=== PATIENT | male | born 1970 | race African-American/Black ===

== ENCOUNTER → 2018-12-04 11:15 | Outpatient (CLI) | payer MEDICARE | END | disposition home or self-care (01) | LOC: D.RAD 11:15 | PROVIDERS: ATTEND Family Medicine | DX: M25.561 Pain in right knee (principal) ==

== ENCOUNTER 2019-10-16 19:05 | Inpatient (IN) | payer MEDICARE ==
[~2019-10-16] VITALS: Ht 172.7 cm; Wt 94.8 kg
[2019-10-17 00:14] VITALS: BP 151/97; BMI 31.9
--- NOTE | 2019-10-17 01:47 | NUR ---
PATIENT AWAKE. BRIEF DRY. PHONE [employer] MECHANICAL DESIGNER ON. BED LOW. CALL LIGHT WITHIN REACH. WILL CONTINUE TO MONITOR.
[2019-10-17] MEDS ORDERED: CARDURA4 MG PO (01:49)
[2019-10-17] MEDS ORDERED: PACERONE200 MG PO (01:49)
[2019-10-17] MEDS ORDERED: CARDURA2 MG (01:51)
[2019-10-17] MEDS ORDERED: FOLIC ACID1 MG PO (01:51)
[2019-10-17] MEDS ORDERED: GABAPENTIN100 MG PO (01:52)
[2019-10-17] MEDS ORDERED: FUROSEMIDE20 MG PO (01:52)
[2019-10-17] MEDS ORDERED: HYDRALAZINE HC100 MG PO (01:53)
[2019-10-17] MEDS ORDERED: HYDROCODON-ACE1 EAC7 PO (01:53)
[2019-10-17] MEDS ORDERED: MAG-OX 400 MG400 MG PO (01:54)
[2019-10-17] MEDS ORDERED: ISOSORBIDE DINI30 MG PO (01:54)
[2019-10-17] MEDS ORDERED: PROCARDIA XL60 MG PO (01:55)
[2019-10-17] MEDS ORDERED: TOPROL XL100 MG PO (01:55)
[2019-10-17] MEDS ORDERED: VITAMIN B-1100 M1 PO (01:55)
[2019-10-17 05:41] LABS: BASOPHILS 0.3 % (0-2); EOSINOPHILS 3.1 % (0-7); HEMATOCRIT 40.7 % (42.0-54.0); HEMOGLOBIN 13.3 g/dL (13.5-17.5); IMMATURE GRANULOCYTES 0.4 % (0-5); LYMPHOCYTES 12.4 % (15-50); MCH 30.6 pg (26.0-34.0); MCHC 32.7 g/dL (31.0-37.0); MCV 93.8 fL (80.0-100.0); MEAN PLATELET VOLUME 10.4 fL (7.4-10.4); MONOCYTES 12.6 % (2-11); NEUTROPHILS 71.2 % (40-80); PLATELET COUNT 234 10x3/uL (130-400); RBC 4.34 10x6/uL (4.20-6.10); RDW 13.7 % (11.5-14.5); WBC 7.5 10x3/uL (4.8-10.8)
[2019-10-17 05:54] LABS: ANION GAP 12.3 mmol/L (8-16); CALCIUM 9.2 mg/dL (8.5-10.1); CARBON DIOXIDE 27.4 mmol/L (21.0-32.0); CREATININE - SERUM 2.1 mg/dL (0.6-1.3); POTASSIUM - SERUM 3.7 mmol/L (3.5-5.1)
--- NOTE | 2019-10-17 07:45 | NUR ---
RESTING IN BED WTIH EYES CLOSED, NO S/S OF DISTRESS NOTED, RESP EVEN AND UNLABORED, C/L AND FLUIDS IN REACH.
[2019-10-17 08:11] VITALS: BP 187/108
--- NOTE | 2019-10-17 09:00 | NUR ---
ASSESSMENT COMPLETE, DENIES ANY NEEDS AT THIS TIME, C/L AND FLUIDS IN REACH.
--- NOTE | 2019-10-17 12:00 | NUR ---
RESTING IN BED WITH EYES CLOSED, NO S/S OF DISTRESS NOTED, RESP EVEN AND UNLABORED, C/L AND FLUIDS IN REACH, REFUSED LUNCH WAS NOT HUNGRY.
[2019-10-17 13:14] VITALS: Ht 172.7 cm; Wt 94.8 kg
--- NOTE | 2019-10-17 16:00 | NUR ---
PATIENT RESTING IN BED WITH EYES CLOSED, NO S/S OF DISTRESS NOTED, RESP EVEN AND UNLABORED, C/L AND FLUIDS IN REACH.
[2019-10-17 19:00] VITALS: BP 128/81
--- NOTE | 2019-10-17 19:10 | NUR ---
BEDSIDE REPORT COMPLETE. PT SITTING UP IN BED VISITING WITH FAMILY. ALERT AND ORIENTED X4. DENIES ANY NEEDS OR PAIN. DINNER SITTING ON BEDSIDE TABLE. PT MOTHER STATES HE WILL EAT IT LATER AND TO LEAVE IN ROOM. VS STABLE. LEFT SIDE FLACCID AND PT NEGLECTS. CALL LIGHT WITHIN REACH. BED ALARM ON. CPOC
[2019-10-17 21:00] VITALS: BP 145/83
--- NOTE | 2019-10-18 01:27 | NUR ---
PT LYING IN BED EYES CLOSED RESTING COMFORTABLY. RR EVEN AND UNLABORED. HOB ELEVATED. CALL LIGHT WITHIN REACH. BED ALARM ON. CPOC
--- NOTE | 2019-10-18 05:37 | NUR ---
PT LYING IN BED EYES CLOSED RESTING COMFORTABLY. RR EVEN AND UNLABORED. CALL LIGHT WITHIN REACH. BED ALARM ON. CPOC
--- NOTE | 2019-10-18 11:00 | NUR ---
I have reviewed this patient and I concur with the Shift Assessment completed by the Licensed Practical Nurse today this shift.
[2019-10-18 11:26] VITALS: BP 184/115
--- NOTE | 2019-10-18 19:31 | NUR ---
PATIENT RECEIVED SITTING UP IN BED. ASSESSMENT & VITAL SIGNS DONE. MOTHER IN ROOM. PATIENT OPENED EYES WHEN THIS NURSE INTRODUCED SELF TO PATIENT & MOTHER. BED LOW. CALL LIGHT WITHIN REACH. WILL CONTINUE TO MONITOR.
[2019-10-18 20:39] VITALS: BP 121/84
--- NOTE | 2019-10-19 01:23 | NUR ---
I have reviewed this patient and I concur with the Shift Assessment completed by the Licensed Practical Nurse today this shift.
--- NOTE | 2019-10-19 03:42 | NUR ---
PATIENT WET, CLEANED. NEW PAD PLACED UNDER PATIENT. BED LOW. CALL LIGHT WITHIN REACH. WILL CONTINUE TO MONITOR.
--- NOTE | 2019-10-19 08:00 | NUR ---
SHIFT ASSMT COMPLETED.CL IN REACH.BREAKFAST GIVEN WITH MEAL SET-UP.
[2019-10-19 08:48] VITALS: BP 185/101
--- NOTE | 2019-10-19 12:00 | NUR ---
COMPLETED BED BATH.LUNCH GIVEN.MEAL SET-UP PROVIDED.CONSUMED ALL OF ENSURE AT BREAKFAST.PROVIDED ANOTHER FOR LUNCH WITH HONEY THICK CONSISTENTCY.
[2019-10-19 13:25] VITALS: BP 149/90
--- NOTE | 2019-10-19 16:00 | NUR ---
CONT TO MONITOR AND ASSIST WITH MEALS.
[2019-10-19 16:11] VITALS: BP 135/84
[2019-10-19 20:00] VITALS: BP 129/65
--- NOTE | 2019-10-19 20:00 | NUR ---
PATIENT RECEIVED SITTING UP IN BED. SON IN ROOM. ASSESSMENT & VIAL SIGNS DONE. BED LOW. CALL LIGHT WITHIN REACH. WILL CONTINUE TO MONITOR.
--- NOTE | 2019-10-19 23:00 | NUR ---
PATIENT GIVEN MIRALAX IN HONEY THICKENED WATER. PATIENT BRUSHED HIS TEETH USING HIS RIGHT HAND. DID A GOOD JOB. BED LOW. CALL LIGHT WITHIN REACH. WILL CONTINUE TO [facility].
--- NOTE | 2019-10-20 01:30 | NUR ---
I have reviewed this patient and I concur with the Shift Assessment completed by the Licensed Practical Nurse today this shift.
--- NOTE | 2019-10-20 05:54 | NUR ---
PATIENT FINISHED DRINKING MIRALAX. ABDOMINAL QUADRANTS ACTIVE X 4. BED LOW. CALL LIGHT & URINAL WITHIN REACH. WILL CONTINUE TO MONITOR.
[2019-10-20 06:26] LABS: ANION GAP 11.5 mmol/L (8-16); CALCIUM 9.2 mg/dL (8.5-10.1); CREATININE - SERUM 2.3 mg/dL (0.6-1.3); POTASSIUM - SERUM 4.5 mmol/L (3.5-5.1)
[2019-10-20 06:46] LABS: BASOPHILS 0.3 % (0-2); EOSINOPHILS 2.2 % (0-7); HEMOGLOBIN 12.5 g/dL (13.5-17.5); IMMATURE GRANULOCYTES 0.3 % (0-5); LYMPHOCYTES 9.3 % (15-50); MCH 30.3 pg (26.0-34.0); MCHC 32.1 g/dL (31.0-37.0); MCV 94.4 fL (80.0-100.0); MEAN PLATELET VOLUME 10.9 fL (7.4-10.4); MONOCYTES 11.1 % (2-11); NEUTROPHILS 76.8 % (40-80); RBC 4.13 10x6/uL (4.20-6.10); WBC 10.2 10x3/uL (4.8-10.8)
[2019-10-20 06:50] LABS: PLATELET COUNT 311 10x3/uL (130-400)
[2019-10-20 08:00] VITALS: BP 142/76
--- NOTE | 2019-10-20 08:25 | RHP ---
PATIENT: SLOAN PITTMAN MEDICAL RECORD: [id number] ACCOUNT: [id number] [id number] ADMISSION DATE: 10/16/19 REHABILITATION HISTORY AND PHYSICAL EXAMINATION POST ADMISSION PHYSICIAN EXAMINATION ADMITTING DIAGNOSIS: CVA. HISTORY OF PRESENT ILLNESS: The patient is admitted secondary to a stroke involving the right basal ganglia. This is a 49-year-old gentleman, who presents to ED with onset of slurred speech, facial drooping and left-sided weakness. His blood pressure was 250/[address] showed a right basal ganglia hemorrhage with a mild midline shift of approximately 1 mm. The patient was placed on appropriate medications in the Emergency Room and worked on his blood pressure. He has got a history of cardiomyopathy, hypertension, AFib and flutter, liver cirrhosis secondary to alcohol use, chronic kidney disease. He has been receiving speech, occupational and physical therapy during her stay. He has been progressing slowly. He needs to be monitored for extension of his CVA, cognition, neuro status, pain control, electrolyte protocol, monitoring his blood sugars, his weakness, balance deficits, his activity tolerance, his mobility, gait, his strength is limited, safety awareness, medical complexity, risk for falls. He has a low endurance. He fatigues easily. He has got inability to take care of himself. These are all reasons he cannot go home at this time. His lives at home with his mother and son. He was independent with ADLs and mobility prior to this. He is currently set up for total assist for his ADLs, max assist to total assist for mobility. He and his family would like for him to return home at his prior level of functioning or better. COMORBIDITIES: Include a left-sided weakness, basal ganglia hemorrhage, he has got a history of respiratory failure, pulmonary edema, cardiomyopathy, hypertension, sinus tachycardia, heavy alcohol consumption, slurred speech, AFib and flutter and chronic kidney disease. PAST MEDICAL HISTORY: Significant for cardiomyopathy, diabetes, hypertension, AFib and flutter, liver cirrhosis, chronic kidney disease. PAST SURGICAL HISTORY: Includes catheterization. ALLERGIES: LORAZEPAM. CURRENT MEDICATIONS: Include thiamine or B1 100 mg daily, he is on nifedipine 60 mg daily, mag 400 mg daily, furosemide 20 mg daily, folic acid 1 mg daily, Cardura 4 mg daily, amiodarone 200 mg daily, isosorbide 30 mg t.i.d., MiraLax 17 grams in 8 ounces of water daily, metoprolol 100 mg b.i.d., hydralazine 100 mg t.i.d., Neurontin 100 mg t.i.d., doxazosin as needed for elevated blood pressures, he is on [place] 5/325 one tab every 4 to 6 hours p.r.n. pain. HABITS: No alcohol or tobacco use. FAMILY HISTORY: Noncontributory. SOCIAL HISTORY: The patient hopes to return back home and get back to his prior level of functioning. REVIEW OF SYSTEMS: HISTORY AND PHYSICAL [id number] SLOAN PITTMAN GENERAL: Does complain of weakness, mainly on one side. HEENT: Denies cold, cough, or congestion. CARDIOVASCULAR: Denies any chest pain. LUNGS: Does complain of shortness of breath with ambulation. PHYSICAL EXAMINATION: VITAL SIGNS: Stable, afebrile. GENERAL: A well-developed gentleman in no acute distress upon exam. HEENT: Normocephalic and atraumatic. Mucosa moist. NECK: Supple. No lymphadenopathy. LUNGS: Clear at this time. No wheezing, rhonchi or rales. HEART: Regular rate and rhythm. No murmurs, rubs or gallops. ABDOMEN: Soft, benign, and nondistended. Positive bowel sounds times 4. EXTREMITIES: No clubbing, cyanosis or edema. NEUROLOGIC: He does have noted left-sided weakness. LABORATORY DATA: White count is 7.5, H&H of 13 and 40, and platelet count was noted to be 234. Sodium 137, potassium 3.7, BUN and creatinine of 23 and 2.1 and blood sugar is noted to be 99. ASSESSMENT: This is a 49-year-old gentleman admitted to the rehab with a working diagnosis of new onset cerebrovascular accident secondary to right basilar ganglia hemorrhage. The patient has potential to make improvement. We instituted the following multidisciplinary therapies including, but not limited to physical, occupational, respiratory, speech, nutritional services, prosthetics and orthotics. Given his complex medical condition and risk for more complications, rehabilitation services cannot be provided at a low level of care such as retirement facility. PLAN: [facility]. [facility] the following disciplines: A. Physical therapy to improve gait, all transfer skills and bed mobility to a modified independent level. B. Occupational therapy to improve activities of living. C. Case management to assist with discharge planning and placement options. D. Nutrition to assist with nutritional needs. E. Rehabilitation nursing to assist in monitoring the patient's underlying medical conditions and to assist with any type of bowel or bladder management. 2. The patient's current medication and medical care will be continued. 3. The patient will be placed on standard fall precautions. 4. The patient's estimated length of stay is approximately 7-10 days. 5. We will discuss the patient's care team staff meeting this week. Continue on medications as appropriate and I will see again in the a.m. TRANSINT:[id number] Voice Confirmation ID: [id number] DOCUMENT ID: [id number] EVIE notes whether there has been none or any medical/functional change since admission: - No change since prescreen. EVIE attests patient continues to be appropriate for IRF: - Continues to be appropriate. HISTORY AND PHYSICAL [id number] SLOAN PITTMAN JOHN SCOTT MD at 0825 CC: [id number] DICTATION DATE: 10/17/19 1030 LOCOMOTIVE MECHANIC APPRENTICE: 10/17/19 1130 ADM IN [place] [id number] [place] [address]
--- NOTE | 2019-10-20 09:24 | NUR ---
REPOSITIONED UP IN BED. CHANGED LINENS. NO C/O PAIN AT THIS TIME. WAS GIVEN PAIN MED THIS AM. CL IN REACH.
--- NOTE | 2019-10-20 14:02 | NUR ---
PARTICIPATED IN THERAPY THIS AM. NO DISTRESS NOTED. SITTING IN WC IN ROOM AT THIS TIME.
[2019-10-20 14:38] VITALS: BP 128/70
--- NOTE | 2019-10-20 16:57 | NUR ---
NO CHANGE IN ASSESSMENT. CHANGED BED PADS. REPOSITIONED UP IN BED.
--- NOTE | 2019-10-20 19:10 | NUR ---
BEDSIDE REPORT COMPLETE. PT SITTING UP IN BED VISITING WITH SON. DENIES ANY NEEDS OR PAIN. RR EVEN AND UNLABORED. VS STABLE. CALL LIGHT WITHIN REACH. BED ALARM ON. CPOC
[2019-10-20 21:28] VITALS: BP 142/88
--- NOTE | 2019-10-21 01:30 | NUR ---
PT LYING IN BED ON RIGHT SIDE EYES CLOSED RESTING COMFORTABLY. RR EVEN AND UNLABORED. CALL LIGHT WITHIN REACH. BED ALARM ON. CPOC
--- NOTE | 2019-10-21 04:34 | NUR ---
PT LYING IN BED SUPINE EYES CLOSED RESTING. RR EVEN AND UNLABORED. CALL LIGHT WITHIN REACH. BED ALARM ON. CPOC
[2019-10-21 08:32] VITALS: BP 166/91
--- NOTE | 2019-10-21 11:13 | NUR ---
Nutrtion Follow-up: Diet: Puree Diabetic diet Honey thick liquids PO intake: ~53% average x last 9 meals; nurse states that he did not eat much breakfast but that he is trying to drink more liquids. He states that he is willing to try a honey thickened Glucerna drink. Encouraged liquid intake. Last BM: 10/21/19. WT: 209# (10/17/19) Labs noted: 35(H), Cr 2.3(H), GFR 32(L), Glu 121(H) Meds noted: miralax, lasix Continue current diet/per FACULTY ADMINISTRATOR for consistency. Will add glucerna TID. RD following.
--- NOTE | 2019-10-21 14:23 | NUR ---
PATIENT ADMITTED TO [facility] FROM AN OUTSIDE FACILITY. DISCHARGE PLANS ARE FOR HIM TO RETURN HOME WITH HIS FAMILY. WILL CONTINUE TO FOLLOW WITH PATIENT.
--- NOTE | 2019-10-21 19:15 | NUR ---
ASSESSMENT PER FLOW SHEET, SEE EMAR, PT DENIES NEEDS OR PAIN AT THIS TIME, SON AT BEDSIDE ON PHONE AT THIS TIME
[2019-10-21 20:59] VITALS: BP 119/77
[2019-10-21 21:18] VITALS: BP 129/77
--- NOTE | 2019-10-21 21:18 | NUR ---
OBTAINED BP AT THIS TIME, SPOKE TO ANNIE SOD STRIPPER NURSE REGARDING MEDS, SHE INFORMED ME TO GO AHEAD ADN ADM MEDS PER MD ORDERS, SEE EMAR, MEDS CRUSHED AND ADM IN PUDDING, PT SAMARIA WELL, PT DENIES NEEDS OR PAIN AT THIS TIME, BED IN LOW POSITION, SIDE RAILS X 2, CALL LIGHT IN REACH
--- NOTE | 2019-10-21 23:12 | NUR ---
PT RESTING WITH EYES CLOSED, RESP QUIET, NO DISTRESS NOTED, LEFT UNDISTURBED AT THIS TIME, BED IN LOW POSITION, SIDE RAILS X 2, BED ALARM ON AND WORKING PROPERLY
--- NOTE | 2019-10-22 03:20 | NUR ---
PT RESTING WITH EYES CLOSED, RESP QUIET, NO DISTRESS NOTED, LEFT UNDISTURBED AT THIS TIME, BED IN LOW POSITION, SIDE RAILS X 2, CALL LIGHT IN REACH
--- NOTE | 2019-10-22 05:55 | NUR ---
PT RESTING WITH EYES CLOSED, AROUSES TO SOFT VERBAL STIMULATION, PT INCONT WITH BOWEL AND URINE, PT CLEANED UP WITH WET WARM WIPES, PINK PAD AND CHUX CHANGED, PT INTO GOWN, FRESH TOP LINENS PLACED ON PT, PT C/ LEFT SHOULDER PAIN, ADM NORCO PO, CRUSHED AND PLACED IN APPLESAUCE PER PT'S REQUEST, SEE EMAR, PT DENIES FURTHER NEEDS
[2019-10-22 07:19] LABS: BASOPHILS 0.4 % (0-2); EOSINOPHILS 4.3 % (0-7); HEMATOCRIT 39.1 % (42.0-54.0); HEMOGLOBIN 12.5 g/dL (13.5-17.5); IMMATURE GRANULOCYTES 0.4 % (0-5); LYMPHOCYTES 11.7 % (15-50); MCH 30.6 pg (26.0-34.0); MCV 95.8 fL (80.0-100.0); MEAN PLATELET VOLUME 10.4 fL (7.4-10.4); MONOCYTES 9.3 % (2-11); NEUTROPHILS 73.9 % (40-80); PLATELET COUNT 359 10x3/uL (130-400); RBC 4.08 10x6/uL (4.20-6.10); RDW 14.1 % (11.5-14.5); WBC 8.1 10x3/uL (4.8-10.8)
[2019-10-22 07:29] LABS: ANION GAP 12.5 mmol/L (8-16); CALCIUM 9.4 mg/dL (8.5-10.1); CARBON DIOXIDE 28.8 mmol/L (21.0-32.0); CREATININE - SERUM 2.6 mg/dL (0.6-1.3); POTASSIUM - SERUM 4.3 mmol/L (3.5-5.1)
[2019-10-22 08:40] VITALS: BP 157/95
--- NOTE | 2019-10-22 08:45 | NUR ---
ALERT ADN ORIENTED. REPOSITIONED IN BED. NO DISTRESS NOTED. RESP EVEN AND UNLABORED. CL IN REACH.
--- NOTE | 2019-10-22 14:30 | NUR ---
PARTICIPATED IN THERAPY. BACK TO ROOM AT THIS TIME. NO C/O PAIN. CL IN REACH.
--- NOTE | 2019-10-22 15:54 | NUR ---
RESTING WITH EYES CLOSED. RESP EVEN AND UNLABORED. CL IN REACH.
--- NOTE | 2019-10-22 16:28 | NUR ---
CARE TEAM MEETING: PATIENT PROGRESSING SLOWLY IN THERAPY. TEAM RECCOMENDS THAT PATIENT DSICHARGE TO SNF. WILL CONTINUE TO FOLLOW WITH PATIENT AND WILL SPEAK WITH FAMILY.
--- NOTE | 2019-10-22 19:30 | NUR ---
REPORT GIVEN BY MELIZA ESCALONA
--- NOTE | 2019-10-22 23:00 | NUR ---
PT IS RESTING QUIETLY WITH HIS EYES CLOSED.
[2019-10-22 23:05] VITALS: BP 139/91
--- NOTE | 2019-10-23 00:30 | NUR ---
CONT TO REST WITH HIS EYES CLOSED. NO C/O OR NEEDS
--- NOTE | 2019-10-23 02:05 | NUR ---
RESTING QUIETLY. BED RAILS ELEVATED X2
--- NOTE | 2019-10-23 05:52 | NUR ---
PT IS SLEEPING AT THIS TIME. NO C/O
--- NOTE | 2019-10-23 07:42 | NUR ---
PT IN BED, REQUESTED URINAL GIVEN, NO URINE PRODUCED, FLUIDS/CALL LIGHT WITHIN REACH
[2019-10-23 08:00] VITALS: BP 184/109
--- NOTE | 2019-10-23 20:00 | NUR ---
PATIENT RECEIVED SITTING UP IN BED. SON AT BEDSIDE. ASSESSMENT & VITAL SIGNS DONE. BED LOW. CALL LIGHT WITHIN REACH. WILL CONTINUE TO MONITOR.
[2019-10-23 21:53] VITALS: BP 125/79
--- NOTE | 2019-10-24 00:34 | NUR ---
I have reviewed this patient and I concur with the Shift Assessment completed by the Licensed Practical Nurse today this shift.
--- NOTE | 2019-10-24 01:08 | NUR ---
PATIENT EYES CLOSED. RESPIRATIONS 18 & EVEN. LEFT ARM ELEVATED ON PILLOW. BED LOW. CALL LIGHT WITHIN REACH. WILL CONTINUE TO MONITOR.
--- NOTE | 2019-10-24 02:22 | NUR ---
PATIENT PADS CHANGED D/T INCONTINENCE OF BLADDER. PATIENT CLEANED CLEAN PADS UNDER BUTTOCKS. PATIENT GIVEN PAIN MEDICATION FOR PAIN LEVEL 5 RIGHT WRIST. BED LOW. CALL LIGHT WITHIN REACH. WILL CONTINUE TO MONITOR.
--- NOTE | 2019-10-24 07:15 | NUR ---
PT ASLEEP, AROUSES EASILY TO VOICE, NO NEEDS NOTED, FALL PRECAUTIONS IN PLACE, FLUIDS/CALL LIGHT WITHIN REACH
[2019-10-24 08:00] VITALS: BP 178/106
--- NOTE | 2019-10-24 09:42 | NUR ---
PT RECIEVED CLONDINE FOR 169 SBP, C/O PAIN NORCO GIVEN
[2019-10-24 10:58] LABS: BASOPHILS 0.4 % (0-2); EOSINOPHILS 3.3 % (0-7); HEMATOCRIT 40.2 % (42.0-54.0); HEMOGLOBIN 12.9 g/dL (13.5-17.5); IMMATURE GRANULOCYTES 0.4 % (0-5); LYMPHOCYTES 13.7 % (15-50); MCH 30.6 pg (26.0-34.0); MCHC 32.1 g/dL (31.0-37.0); MCV 95.3 fL (80.0-100.0); MEAN PLATELET VOLUME 10.6 fL (7.4-10.4); MONOCYTES 8.2 % (2-11); PLATELET COUNT 407 10x3/uL (130-400); RBC 4.22 10x6/uL (4.20-6.10); WBC 8.5 10x3/uL (4.8-10.8)
[2019-10-24 11:05] LABS: ANION GAP 15.4 mmol/L (8-16); CALCIUM 9.6 mg/dL (8.5-10.1); CREATININE - SERUM 2.9 mg/dL (0.6-1.3); POTASSIUM - SERUM 4.4 mmol/L (3.5-5.1)
--- NOTE | 2019-10-24 13:02 | NUR ---
PT C/O PAIN. PRN NORCO GIVEN FOR A PAIN LEVEL OF 5/10, PT ALWAYS STATES A PAIN LEVEL OF 5/10 WHEN REQUESTING PAIN MEDICATION AND DOES NOT REMEMBER YOU GIVE HIM PRN MED, WILL ASK FOR IT AGAIN WITHIN AN HOUR
--- NOTE | 2019-10-24 19:26 | NUR ---
PATIENT LAYING IN BED. MOTHER AT BEDSIDE. VITAL SIGNS & ASSESSMENT DONE. BED LOW. CALL LIGHT WITHIN REACH. WILL CONTINUE TO MONITOR.
[2019-10-24 19:59] VITALS: BP 131/79
--- NOTE | 2019-10-25 00:34 | NUR ---
PATIENT EYES CLOSED. RESPIRATIONS 18 & EVEN. BED LOW. CALL LIGHT WITHIN REACH. WILL CONTINUE TO MONITOR.
--- NOTE | 2019-10-25 00:49 | NUR ---
I have reviewed this patient and I concur with the Shift Assessment completed by the Licensed Practical Nurse today this shift.
--- NOTE | 2019-10-25 07:30 | NUR ---
RESTING IN BED WITH EYES CLOSED, NO S/S OF DISTRESS NOTED, RESP EVEN AND UNLABORED, V/S AND ASSESSMENT COMPLETE, C/L AND THICKENED LIQUIDS IN REACH.
[2019-10-25 08:11] VITALS: BP 178/106
--- NOTE | 2019-10-25 12:30 | NUR ---
UP IN BED EATING LUNCH, ATE 20% AND DRANK 240, DENIES ANY NEEDS AT THIS TIME, C/L AND THICKENED LIQUIDS IN REACH.
--- NOTE | 2019-10-25 16:00 | NUR ---
PT RESTING IN BED, BEDBATH GIVEN AND ALL LINENS AND GOWN CHANGED, DENIES ANY NEEDS AT THIS TIME, C/L AND FLUIDS IN REACH.
--- NOTE | 2019-10-25 17:48 | NUR ---
PATIENT C/O NEEDING TO URINATE BUT UNALBE TO VOID, BLADDER SCAN SHOWED 560ML IN BLADDER, WENT TO DO IN AND OUT CATH AND PT. HAD INCONTINENT VOID, WENT AHEAD WITH IN AND OUT CATH WITH ZERO ML. CLEANED PATIENT AND WILL CONTINUE TO MONITOR BLADDER, C/L AND FLUIDS IN REACH.
--- NOTE | 2019-10-25 18:58 | NUR ---
PATIENT RECEIVED SITTING UP IN BED EATING. ASSESSMENT & VITAL SIGNS DONE. BED LOW. CALL LIGHT WITHIN REACH. WILL CONTINUE TO MONITOR.
[2019-10-25 19:45] VITALS: BP 140/89
--- NOTE | 2019-10-26 00:31 | NUR ---
I have reviewed this patient and I concur with the Shift Assessment completed by the Licensed Practical Nurse today this shift.
--- NOTE | 2019-10-26 02:50 | NUR ---
PATIENT AWAKE. DRINKING NECTAR THICK WATER & USING URINAL. BED LOW. CALL LIGHT WITHIN REACH. WILL CONTINUE TO MONITOR.
--- NOTE | 2019-10-26 04:30 | NUR ---
PATIENT BEDDING CHANGED. BED BATH GIVEN. BED LOW. CALL LIGHT WITHIN REACH. WILL CONTINUE TO MONITOR.
--- NOTE | 2019-10-26 08:30 | NUR ---
PATIENT RESTING IN BED WITH EYES CLOSED, INCONTINENT EPISODE, CLEANED PATIENT AND CHANGED ALL LINENS AND GOWN, DENIES ANY NEEDS AT THIS TIME, C/L AND THICKENED LIQUIDS IN REACH.
--- NOTE | 2019-10-26 08:30 | NUR ---
V/S AND ASSESMENT COMPLETE.
[2019-10-26 09:13] VITALS: BP 185/112
--- NOTE | 2019-10-26 12:58 | NUR ---
RESTING IN BED WITH EYES CLOSED, RESP EVEN AND UNLABORED, NO S/S OF DISTRESS NOTED, C/L AND THICKENED LIQUIDS IN REACH.
--- NOTE | 2019-10-26 16:03 | NUR ---
RESTING IN BED WITH EYES CLOSED, NO S/S OF DISTRESS NOTED, RESP EVEN AND UNLABORED, C/L AND THICKENED LIQUIDS IN REACH.
--- NOTE | 2019-10-26 19:23 | NUR ---
ALERT AND ORENTED SPEACH SLURED. FAMILY AT BEDSIDE, FEEDING PATIENT. LEFT SIDE FLACID. REMAINS ON SOFT MECH. GROUND MEAT DIABETIC DIET WITH NECTAR THICK LIQUIDES. ON ROOM AIR. NO NEEDS AT THIS TIME.
[2019-10-26 20:25] VITALS: BP 132/87
[2019-10-27 07:00] LABS: BASOPHILS 0.4 % (0-2); EOSINOPHILS 2.8 % (0-7); HEMATOCRIT 41.8 % (42.0-54.0); HEMOGLOBIN 13.4 g/dL (13.5-17.5); IMMATURE GRANULOCYTES 0.4 % (0-5); LYMPHOCYTES 11.6 % (15-50); MCHC 32.1 g/dL (31.0-37.0); MCV 93.7 fL (80.0-100.0); MEAN PLATELET VOLUME 10.6 fL (7.4-10.4); MONOCYTES 8.4 % (2-11); NEUTROPHILS 76.4 % (40-80); PLATELET COUNT 435 10x3/uL (130-400); RBC 4.46 10x6/uL (4.20-6.10); RDW 13.6 % (11.5-14.5); WBC 7.4 10x3/uL (4.8-10.8)
[2019-10-27 07:03] LABS: ANION GAP 13.9 mmol/L (8-16); CALCIUM 9.9 mg/dL (8.5-10.1); CARBON DIOXIDE 27.6 mmol/L (21.0-32.0); CREATININE - SERUM 2.4 mg/dL (0.6-1.3); POTASSIUM - SERUM 4.5 mmol/L (3.5-5.1)
--- NOTE | 2019-10-27 07:45 | NUR ---
RESTING IN BED WITH EYES CLOSED, NO S/S OF DISTRESS NOTED, V/S AND ASSESSMENT COMPLETE, C/L AND THICKENED LIQUIDS IN REACH.
[2019-10-27 08:00] VITALS: BP 151/92
--- NOTE | 2019-10-27 12:40 | NUR ---
UP IN W/C EATING LUNCH WITH THERAPY, DENIES ANY NEEDS AT THIS TIME, C/L AND THICKENED LIQUIDS IN REACH.
--- NOTE | 2019-10-27 14:23 | NUR ---
Nutrition Follow-up: Diet: Diabetic [facility] Soft, ground meats, nectar thick + Glucerna with trays PO intake: ~15% average x last 6 meals recorded. He states that his appetite is good and that he has been trying to eat and drink. He had eaten over half of his lunch tray and had two empty Glucerna cartons on bedside table. He states that he is drinking Glucerna but wants his liquids very cold. Last BM: 10/21/19. WT: 209# (10/17/19), no new weight Meds noted: miralax, lasix. Labs noted: BUN 46(H), Cr 2.4(H), GFR 31(L), Glu 112(H) Recommend continue current diet or per DIABETES NURSE. Continue Glucerna with meals. Will update diet order with preferences. Continue encouraged intake of meals and liquids. RD following.
--- NOTE | 2019-10-27 16:00 | NUR ---
RESTING IN BED WITH EYES CLOSED, NO S/S OF DISTRESS NOTED, RESP EVEN AND UNLABORED, C/L AND THICKENED LIQUIDS IN REACH.
--- NOTE | 2019-10-27 19:07 | NUR ---
PATIENT RECEIVED SITTING UP IN BED. ASSESMENT & VITAL SIGNS DONE. BED LOW. MEAL IN ROOM. CALL LIGHT WITHIN REACH. WILL CONTINUE TO MONITOR.
[2019-10-27 21:26] VITALS: BP 133/79
--- NOTE | 2019-10-28 01:49 | NUR ---
I have reviewed this patient and I concur with the Shift Assessment completed by the Licensed Practical Nurse today this shift.
--- NOTE | 2019-10-28 04:04 | NUR ---
PATIENT AWAKE USING URINAL. BED LOW. CALL LIGHT WITHIN REACH. WILL CONTINUE TO MONITOR.
--- NOTE | 2019-10-28 07:30 | NUR ---
RESTING QUIETLY POSITIONED ON BACK WITH EYES CLOSED. RESP EVEN AND UNLABORED ON RA. MO APPARENT PROBLEMS AT PRESENT TIME. SIDERAILS UP X2, CALL LIGHT IN REACH, BED IN LOW LOCKED POSITION. SPLINT NOTED TO BE IN PLACE ON LEFT HAND.
[2019-10-28 08:00] VITALS: BP 152/82
--- NOTE | 2019-10-28 13:37 | NUR ---
I have reviewed this patient and I concur with the Shift Assessment completed by the Licensed Practical Nurse today this shift.
--- NOTE | 2019-10-28 19:08 | NUR ---
PATIENT RECEIVED SITTING UP IN BED EATING MEAL. SON IN ROOM. ASSESSMENT & VITAL SIGNS DONE. NO C/O PAIN OR DISTRESS. BED LOW. CALL LIGHT WITHIN REACH. WILL CONTINUE TO MONITOR.
[2019-10-28 21:18] VITALS: BP 129/76
--- NOTE | 2019-10-29 01:02 | NUR ---
PATIENT USED CALL LIGHT FOR ASSIST. PATIENT WARM BLANKET PLACED UNDER ANOTHER BLANKET. BED LOW. PHONE & CALL LIGHT WITHIN REACH. WILL CONTINUE TO MONITOR.
--- NOTE | 2019-10-29 03:37 | NUR ---
PATIENT AWAKE USING URINAL. BED LOW. CALL LIGHT WITHIN REACH. [facility].
--- NOTE | 2019-10-29 04:23 | NUR ---
PATIENT USING URINAL. SPILLED IT. TOTAL BED CHANGE. PATIENT CLEANED. NEW LINENS ON BED. PHONE & CALL LIGHT WITHIN REACH. WILL CONTINUE TO MONITOR.
[2019-10-29 06:47] LABS: BASOPHILS 0.5 % (0-2); EOSINOPHILS 3.6 % (0-7); HEMATOCRIT 37.5 % (42.0-54.0); IMMATURE GRANULOCYTES 0.5 % (0-5); LYMPHOCYTES 14.1 % (15-50); MCH 30.1 pg (26.0-34.0); MONOCYTES 11.2 % (2-11); NEUTROPHILS 70.1 % (40-80); PLATELET COUNT 433 10x3/uL (130-400); RBC 3.99 10x6/uL (4.20-6.10); RDW 13.6 % (11.5-14.5); WBC 7.7 10x3/uL (4.8-10.8)
[2019-10-29 06:54] LABS: ANION GAP 12.5 mmol/L (8-16); CARBON DIOXIDE 28.1 mmol/L (21.0-32.0); CREATININE - SERUM 2.7 mg/dL (0.6-1.3); POTASSIUM - SERUM 4.6 mmol/L (3.5-5.1)
--- NOTE | 2019-10-29 07:18 | NUR ---
PT IN BED LAYING QUIETLY, NO NEEDS NOTED, FALL PRECAUTIONS IN PLACE, FLUIDS/CALL LIGHT WITHIN REACH
[2019-10-29 08:00] VITALS: BP 156/93
--- NOTE | 2019-10-29 14:36 | NUR ---
PT LFT KNEE APPEARS FLUID FILLED INNER KNEE, PT STATES IT IS NORMAL FOR THIS TO HAPPEN
--- NOTE | 2019-10-29 20:13 | NUR ---
PT LYING IN BED RESTING WITH EYES CLOSED. NO SIGNS OF DISTRESS NOTED RESPIRATIONS EVEN AND UNLABORED. PT EASILY AWAKEN WITH VOICE STIMULATION. CALL LIGHT AND OTHER PERSONAL ITEMS WITH IN REACH. NO COMPLAINTS AT THIS TIME. WILL CONTINUE TO MONITOR
[2019-10-29 21:10] VITALS: BP 131/78
--- NOTE | 2019-10-30 01:12 | NUR ---
I have reviewed this patient and I concur with the Shift Assessment completed by the Licensed Practical Nurse today this shift.
--- NOTE | 2019-10-30 02:25 | NUR ---
PT LYING IN BED AWAKE AND ALERT. PT HAS NO COKMPLAINTS AT THIS TIME. REPOSITIONED PT FOR COMFORT. PT REFUSES MIRALAX. BED BATH AND LIENEN CHANGE. PT TOLERATED WELL. CALL LIGHT AND OTHER PERSONAL ITEMS WITH IN REACH. WILL CONTINUE TO MONITOR
[2019-10-30 08:00] VITALS: BP 163/103
--- NOTE | 2019-10-30 08:00 | NUR ---
AWAKE AND ALERT RESTING IN BED, DENIES ANY NEEDS AT THIS TIME, ASSESSMENT COMPLETE, C/L AND THICKENED LIQUIDS IN REACH.
--- NOTE | 2019-10-30 12:30 | NUR ---
UP IN W/C EATING LUNCH, DENIES ANY NEEDS AT THIS TIME, C/L AND THICKENED LIQUIDS IN REACH.
--- NOTE | 2019-10-30 16:00 | NUR ---
RESTING IN BED WITH EYES CLOSED, NO S/S OF DISTRESS NOTED, RESP EVEN AND UNLABORED, C/L AND THICKENED LIQUIDS IN REACH.
--- NOTE | 2019-10-30 19:40 | NUR ---
PT LYING IN BED AWAKE ALERT AND ORIENTED X4. NO SINGS OF DISTRSS NOTED. PT REPOSITIONED FOR COMFORT. LEFT HEEL IS BRIDGED. RESPIRATIONS EVEN AND UNLABORED. PT HAS NO COMPLAIINTS AT THIS TIME. CALL LIGHT AND OTHER PERSONAL ITEMS WITH IN REACH. SIDERAILS x2. WILL CONTINUE TO MONITOR.
[2019-10-30 20:01] VITALS: BP 123/82
--- NOTE | 2019-10-31 00:12 | NUR ---
I have reviewed this patient and I concur with the Shift Assessment completed by the Licensed Practical Nurse today this shift.
--- NOTE | 2019-10-31 03:14 | NUR ---
REPOSITIONED PT FOR COMFORT PER PT REQUEST. NO SIGNS OF DISTRESS NOTED AT THIS TIME. SIDERAILS x2. CALL LIGHT AND OTHER PERSONAL ITEMS WITH IN REACH. BED ALARM ON AND ACTIVE. WILL CONTINUE TO MONITOR
[2019-10-31 05:23] LABS: BASOPHILS 0.4 % (0-2); EOSINOPHILS 4.8 % (0-7); HEMATOCRIT 37.4 % (42.0-54.0); HEMOGLOBIN 11.9 g/dL (13.5-17.5); IMMATURE GRANULOCYTES 0.6 % (0-5); LYMPHOCYTES 15.4 % (15-50); MCHC 31.8 g/dL (31.0-37.0); MCV 94.2 fL (80.0-100.0); MEAN PLATELET VOLUME 10.7 fL (7.4-10.4); MONOCYTES 9.5 % (2-11); NEUTROPHILS 69.3 % (40-80); PLATELET COUNT 419 10x3/uL (130-400); RBC 3.97 10x6/uL (4.20-6.10); RDW 13.6 % (11.5-14.5)
[2019-10-31 05:24] LABS: WBC 5.3 10x3/uL (4.8-10.8)
[2019-10-31 05:57] LABS: ANION GAP 12.5 mmol/L (8-16); CALCIUM 9.7 mg/dL (8.5-10.1); CARBON DIOXIDE 25.8 mmol/L (21.0-32.0); CREATININE - SERUM 2.7 mg/dL (0.6-1.3); POTASSIUM - SERUM 4.3 mmol/L (3.5-5.1)
[2019-10-31 07:49] VITALS: BP 150/73
--- NOTE | 2019-10-31 08:15 | NUR ---
AWAKE AND ALERT UP IN BED, ASSESSMENT COMPLETE, DENIES ANY NEEDS AT THIS TIME, C/L AND THICKENED LIQUIDS IN REACH.
--- NOTE | 2019-10-31 12:11 | NUR ---
UP IN W/C EATING LUNCH, DENIES ANY NEEDS AT THIS TIME, C/L AND THICKENED LIQUIDS IN REACH.
--- NOTE | 2019-10-31 15:13 | NUR ---
PT HAS AN INTACT BLISTER ON HIS LEFT HEEL (STAGE 2 PRESSURE INJURY). COVERED WITH MEPILEX BORDER FLEX FOR PROTECTION. KEEP ELEVATED (FLOATED ) WHEN IN BED. WOUND CARE CONTINUES TO MONITOR.
--- NOTE | 2019-10-31 15:25 | NUR ---
CARE TEAM MEETING ON 10/29/19: PATIENT IS PROGRESSING IN THERAPY VERY SLOWLY. RECCOMENDATIONS ARE FOR PATIENT TO DISCHARGE TO SNF. A LIST OF FACILITES WAS GIVEN TO PATIENTS SON. WILL CONTINUE TO FOLLOW WITH PATIENT.
--- NOTE | 2019-10-31 15:42 | NUR ---
Nutrition Follow-up: Diet: Diabetic + glucerna with meals PO intake: ~25% average x last 9 meals; spoke with patient and CONSTRUCTION ESTIMATOR at patient's bedside. States that patient ate well for lunch today but did not eat well at dinner last night. He is drinking all of the Glucerna being sent on meal trays. Last BM: 10/30/19. WT: 209# (10/17/19), no new weight Meds noted: miralax, MagOx, lasix Labs noted: BUN 47(H), Cr 2.7(H), GFR 32(L), Glu 107(H) Recommend continue current diet or per CONSTRUCTION ESTIMATOR recommendations. Continue oral nutrition supplements. Needs new weight. RD following.
--- NOTE | 2019-10-31 16:14 | NUR ---
RESTING IN BED WITH EYES CLOSED, NO S/S OF DISTRESS NOTED, RESP EVEN AMD UNLABORED, C/L AND THICKENED LIQUIDS IN REACH.
--- NOTE | 2019-10-31 19:30 | NUR ---
PATIENT RECEIVED SITTING UP IN BED. ASSESSMENT & VITAL SIGNS DONE. REFUSED TO EAT HIS MEAL. TRAY TAKEN AWAY. PATIENT DRINKING HIS SUPPLEMENT. BED LOW. CALL LIGHT WITHIN REACH. WILL CONTINUE TO MONITOR.
[2019-10-31 20:00] VITALS: BP 135/78
--- NOTE | 2019-10-31 20:10 | NUR ---
SON HERE VISITING PER PATIENT REQUEST. PATIENT GIVEN COLD NECTAR THICK. GLUCERNA CARTON DRANK. PATIENT REFUSED TO EAT THIS DINNER. BED LOW. CALL LIGHT & PHONE WITHIN REACH. WILL CONTINUE TO MONITOR.
--- NOTE | 2019-10-31 23:07 | NUR ---
PATIENT TRYING TO USE URINAL SPILLED IT. TOTAL BED CHANGE. BED LOW. CALL LIGHT WITHIN REACH. WILL CONTINUE TO MONITOR.
--- NOTE | 2019-11-01 01:40 | NUR ---
I have reviewed this patient and I concur with the Shift Assessment completed by the Licensed Practical Nurse today this shift.
--- NOTE | 2019-11-01 07:30 | NUR ---
RESTING QUIETLY POSITIONED ON BACK WITH EYES CLOSED. RESP EVEN AND UNLABORED WITH NO DISTRESS NOTED. SIDERAILS UP X 2, CALL LIGHT IN REACH AND BED IN LOW, LOCKED POSITION.
[2019-11-01 12:19] VITALS: BP 162/102
--- NOTE | 2019-11-01 14:35 | NUR ---
I have reviewed this patient and I concur with the Shift Assessment completed by the Licensed Practical Nurse today this shift.
--- NOTE | 2019-11-01 19:15 | NUR ---
SITTING UP IN BED. FAMILY MEMBER AT BEDSIDE ASSISTING WITH FEEDING PT. ALERT AND ORIENTED X2, SELF AND PLACE. CONFUSED TO TIME. LUE AND LLE ARE FLACCID. BLIND IN LT EYE. RT EYE IS RED. DRSG TO LT HEEL BLISTER. RT HEEL IS SPONGY. INCONT OF B/B. BED ALARM ON FOR PT SAFETY. RESP EVEN AND NONLABORED. NO IV ACCESS. SR ELEVATED X2. CL IN REACH. DENIES PAIN.
[2019-11-01 20:09] VITALS: BP 119/82
[2019-11-01 21:27] VITALS: BP 132/68
--- NOTE | 2019-11-01 23:51 | NUR ---
REPOSITIONED FOR COMFORT. PT IS CLEAN AND DRY. BED ALARM ON FOR PT SAFETY. CL IN REACH. RESP EVEN AND NONLABORED. NO DISTRESS.
[2019-11-02 00:10] VITALS: BP 119/72
--- NOTE | 2019-11-02 00:26 | NUR ---
MEDICATED WITH NORCO FOR C/O PAIN IN HIPS. REPOSITIONED TO LT SIDE PER REQUEST. CL IN REACH.
--- NOTE | 2019-11-02 02:55 | NUR ---
HASNT RESTED MUCH TONIGHT. HAS BEEN RESTLESS AND UNABLE TO GET COMFORTABLE IN THE BED.
[2019-11-02 04:10] VITALS: BP 155/88
--- NOTE | 2019-11-02 04:14 | NUR ---
MEDICATED WITH NORCO FOR C/O HIP PAIN. REPOSITIONED FOR COMFORT. CL IN REACH.
--- NOTE | 2019-11-02 05:30 | NUR ---
REPOSITIONED FOR COMFORT. RESTLESS AND MOVES AROUND IN THE BED. FAVORS/LEANS TO RT SIDE. PILLOWS PLACED UNDER BILAT HIPS. CL IN REACH.
--- NOTE | 2019-11-02 08:00 | NUR ---
SHIFT ASSMT COMPLETED.CHANGED AND POSITIONED UP IN BED.BILAT HEELS FLOATED.BREAKFAST GIVEN.MEAL SET-UP PROVIDED.ASSISTED WITH FEEDING MEAL;FEW BITES TAKEN.
[2019-11-02 08:15] VITALS: BP 159/98
--- NOTE | 2019-11-02 19:20 | NUR ---
LAYING IN BED TALKING TO HIS SON. ALERT AND ORIENTED X4. CONFUSED AT TIMES. SPEECH DIFF TO UNDERSTAND AT TIMES. LUE IS FLACCID. LLE STIFFENS UP WHEN TURNING. DRSG NOTED TO LT HEEL. HOB ELEVATED. BLIND IN LT EYE. RT EYE IS RED. DENIES PAIN. SR ELEVATED X2. CL IN REACH. BED ALARM IN USE. NO DISTRESS.
[2019-11-02 20:10] VITALS: BP 140/84
--- NOTE | 2019-11-02 21:40 | NUR ---
ASSISTED ONTO BEDPAN. SOFT BM NOTED. MEDICATED WITH NORCO FOR C/O PAIN IN LT HIP. CL IN REACH.
--- NOTE | 2019-11-02 23:35 | NUR ---
ASSISTED ONTO BEDPAN. CL IN REACH.
--- NOTE | 2019-11-03 01:23 | NUR ---
RESTING QUIETLY WITH EYES CLOSED ON LT SIDE IN BED. HOB ELEVATED. NO DISTRESS. CL IN REACH. BED ALARM ON.
--- NOTE | 2019-11-03 04:09 | NUR ---
RESTING WELL. EYES CLOSED. RESP EVEN AND NONLABORED. NO DISTRESS. CL IN REACH.
--- NOTE | 2019-11-03 05:21 | NUR ---
INCONT OF BLADDER. PERICARE PERFORMED. PADS CHANGED. MEDICATED WITH NORCO FOR C/O PAIN IN LT HIP/LEG RATING 10. CL IN REACH.
[2019-11-03 07:24] LABS: BASOPHILS 0.3 % (0-2); EOSINOPHILS 3.8 % (0-7); HEMATOCRIT 38.9 % (42.0-54.0); HEMOGLOBIN 12.4 g/dL (13.5-17.5); IMMATURE GRANULOCYTES 0.1 % (0-5); MCHC 31.9 g/dL (31.0-37.0); MEAN PLATELET VOLUME 10.8 fL (7.4-10.4); MONOCYTES 11.4 % (2-11); NEUTROPHILS 71.4 % (40-80); PLATELET COUNT 372 10x3/uL (130-400); RBC 4.14 10x6/uL (4.20-6.10); RDW 13.7 % (11.5-14.5); WBC 6.8 10x3/uL (4.8-10.8)
--- NOTE | 2019-11-03 07:30 | NUR ---
RESTING IN BED, V/S AND ASSESSMENT COMPLETE, DENIES ANY NEEDS AT THIS TIME, C/L AND THICKENED LIQUIDS IN REACH.
[2019-11-03 07:38] VITALS: BP 164/94
[2019-11-03 07:43] LABS: ANION GAP 12.8 mmol/L (8-16); CALCIUM 9.5 mg/dL (8.5-10.1); CARBON DIOXIDE 26.5 mmol/L (21.0-32.0); CREATININE - SERUM 2.7 mg/dL (0.6-1.3); POTASSIUM - SERUM 4.3 mmol/L (3.5-5.1)
--- NOTE | 2019-11-03 11:56 | NUR ---
UP IN W/C, DENIES ANY NEEDS AT THIS TIME, C/L AND THICKENED LIQUIDS IN REACH.
--- NOTE | 2019-11-03 16:00 | NUR ---
RESTING IN BED WITH EYES CLOSED, RESP EVEN AND UNLABORED, NO S/S OF DISTRESS NOTED, C/L AND THICKENED LIQUIDS IN REACH.
--- NOTE | 2019-11-03 19:02 | NUR ---
ROUNDS MADE, PT RESTING WITH EYES CLOSED, RESP QUIET, NO DISTRESS NOTED, LEFT UNDISTURBED AT THIS TIME, BED IN LOW POSITION, SIDE RAILS X 2, CALL LIGHT IN REACH, BED ALARM ON AND WORKING PROPERLY
[2019-11-03 21:45] VITALS: BP 139/87
[2019-11-03 22:26] VITALS: BP 142/92
--- NOTE | 2019-11-03 22:26 | NUR ---
PT AWAKE, ASSESSMENT PER FLOW SHEET, OBTAINED BP, SEE FLOW SHEET, ADM 2100 MEDS PER MD ORDERS, CRUSHED IN APPLESAUCE PER PT'S REQUEST, PT REPORTS NEEDING TO VOID, THIS RN ASSISTED WITH URINAL, VOIDED 150 MLS OF DARK YELLOW URINE, PT REQUESTED AND ASSISTED WITH COLD THICKENED WATER, DENIES FURTHER NEEDS OR PAIN AT THIS TIME, BED IN LOW POSITION, SIDE RAILS X 2, CALL LIGHT IN REACH, BED ALARM ON AND WORKING PROPERLY
--- NOTE | 2019-11-04 00:35 | NUR ---
PT AWAKE, REPORTS NEEDING TO "PEE", URINAL PLACED, SECURED WITH RIC STRICKLAND TO LEAVE URINAL IN PLACE AT THIS TIME
--- NOTE | 2019-11-04 00:43 | NUR ---
PT AROUSE TO SOFT VERBAL STIMULATION, STILL HAS NOT VOIDED, WANTS TO CONTINUE KEEPING URINAL IN PLACE AT THIS TIME
--- NOTE | 2019-11-04 00:58 | NUR ---
PT UNABLE TO VOID AT THIS TIME, URINAL REMOVED, PT DENIES FURTHER NEEDS OR PAIN AT THIS TIME, BED IN LOW POSITION, SIDE RAILS X 2, CALL LIGHT IN REACH, BED ALARM ON AND WORKING PROPERLY
--- NOTE | 2019-11-04 03:41 | NUR ---
PT CARE CENTER MANAGER LIGHT, REPORTS PASSING GAS AND A LITTLE BIT OF STOOL, THIS RN AND [place] COVARRUBIAS TO ROOM, PT HARD LARGE BROWN PASTY STOOL AND ALSO VOIDED, PT CLEANED UP WITH WARM WIPES, COMPLETE BEDDING CHANGE DONE, PT PLACED IN YELLOW GOWN, REPOSITIONED IN BED, REQUESTED AND SERVED THICKENED LIQUID WATER, DENIES FURTHER NEEDS OR PAIN AT THIS TIME, BED IN LOW POSITION, SIDE RAILS X 2, CALL LIGHT IN REACH
--- NOTE | 2019-11-04 05:51 | NUR ---
PT AWAKE, PT IS DRY AT THIS TIME, DENIES NEEDS OR PAIN, BED IN LOW POSITION, SIDE RAILS X 2, CALL LIGHT IN REACH
[2019-11-04 07:30] VITALS: BP 182/104
--- NOTE | 2019-11-04 07:30 | NUR ---
VS TAKEN,ASSESSMENT COMPLETED.DENIES NEEEDS AT PRESENT.CL IN EASY REACH,BED IN LOW POSITION.BED ALARM ON AND WORKING.WILL CONTIUE WITH CURRENT PLAN OF CARE.
--- NOTE | 2019-11-04 11:03 | NUR ---
Nutrition Follow-up: Diet: Diabetic Soft Mech, ground meats c nectar thick liquids + Glucerna TID PO intake: ~47% average x last 8 meals; he reports that his appetite has been improving. He is drinking Glucerna. Last BM: 11/03/19 x 2. WT: 209# (10/17/19), no new weight Meds noted: miralax, lasix. Labs noted: BUN 38(H), Cr 2.7(H), GFR 32(L), Glu 112(H) Skin: unstageable PU to L heel Needs new weight. Recommend continue PO diet per TEACHERS AIDE recommendations. Will continue Glucerna TID. RD following.
--- NOTE | 2019-11-04 19:18 | NUR ---
PT LYING IN BED. CL IN REACH. VISITOR IN ROOM. BED IN LOW SIDE RAILS X2. RESP EVEN AND UNLABORED. LUNGS CLEAR. BOWEL ACTIVE X4. LEFT ARM FLACCID. INCONT MOST OF THE TIME. WILL CONTINUE TO MONITOR.
[2019-11-04 20:20] VITALS: BP 141/83
--- NOTE | 2019-11-04 23:27 | NUR ---
I have reviewed this patient and I concur with the Shift Assessment completed by the Licensed Practical Nurse today this shift.
[2019-11-05 07:08] LABS: ANION GAP 12.4 mmol/L (8-16); BASOPHILS 0.4 % (0-2); CALCIUM 9.2 mg/dL (8.5-10.1); CREATININE - SERUM 2.8 mg/dL (0.6-1.3); EOSINOPHILS 4.5 % (0-7); HEMATOCRIT 37.6 % (42.0-54.0); HEMOGLOBIN 12.2 g/dL (13.5-17.5); IMMATURE GRANULOCYTES 0.2 % (0-5); LYMPHOCYTES 18.7 % (15-50); MCH 30.2 pg (26.0-34.0); MCHC 32.4 g/dL (31.0-37.0); MCV 93.1 fL (80.0-100.0); MEAN PLATELET VOLUME 10.5 fL (7.4-10.4); MONOCYTES 8.6 % (2-11); NEUTROPHILS 67.6 % (40-80); PLATELET COUNT 343 10x3/uL (130-400); POTASSIUM - SERUM 4.4 mmol/L (3.5-5.1); RBC 4.04 10x6/uL (4.20-6.10); RDW 13.7 % (11.5-14.5); WBC 5.6 10x3/uL (4.8-10.8)
--- NOTE | 2019-11-05 08:00 | NUR ---
SHIFT ASSMT COMPLETED.BREAKFAST TRAY SET-UP PROVIDED.
[2019-11-05 08:42] VITALS: BP 150/92
--- NOTE | 2019-11-05 12:00 | NUR ---
SITTING UP IN WC.CL IN REACH.
--- NOTE | 2019-11-05 16:14 | NUR ---
CARE TEAM MEETING: PATIENT AND SON ATTENDED THE MEETING. PATIENT WOULD LIKE A REFERRAL TO [facility] . A REFERRAL WILL BE FAXED. WILL CONTIUNE TO FOLLOW WITH PATIENT. TENATIVE DISCHARGE DATE IS 11/11/19.
--- NOTE | 2019-11-05 19:15 | NUR ---
REPORT GIVEN BY MELIZA REARDON
[2019-11-05 21:16] VITALS: BP 122/69
--- NOTE | 2019-11-05 22:00 | NUR ---
ASSESSMENT COMPLETE. PT IS STILL FLACCID ON THE LEFT SIDE. HE SLEEPS MOST OF THE SHIFT. HE TAKES IN MEDS IN APPLESAUCE WITH A TOUCH OF CINNAMON CRUSHED VERY WELL. HE IS NOW ON THIN LIQUIES NOW. HE REFUSED HIS MIRALAX DURING THE MED PASS. HE IS AWAKE AND ORIENTED. HE STILL HAS SOME VISUAL PROBLEMS. HE HAS LEFT NEGLECT.
[2019-11-06 07:44] VITALS: BP 159/95
--- NOTE | 2019-11-06 08:35 | NUR ---
RESTING IN BED AWAKE AND ALERT, DENIES ANY NEEDS AT THIS TIME, V/S AND ASSESSMENT COMPLETE, C/L AND FLUIDS IN REACH.
--- NOTE | 2019-11-06 12:00 | NUR ---
UP IN W/C AWAKE AND ALERT, DENIES ANY NEEDS AT THIS TIME, C/L AND FLUIDS IN REACH.
--- NOTE | 2019-11-06 13:00 | NUR ---
I have reviewed this patient and I concur with the Shift Assessment completed by the Licensed Practical Nurse today this shift.
--- NOTE | 2019-11-06 16:00 | NUR ---
RESTING IN BED WITH EYES CLOSED, NO S/S OF DISTRESS NOTED, RESP EVEN AND UNLABORED, C/L AND FLUIDS IN REACH.
[2019-11-06 20:18] VITALS: BP 123/74
--- NOTE | 2019-11-06 21:15 | NUR ---
REPORT RECEIVED. ASSESSMENT COMPLETED, SEE FLOWSHEET. PT AAOX4, RESTING IN BED. PM MEDS TAKEN WITHOUT DIFFICULTY. WILL CONTINUE TO MONITOR.
--- NOTE | 2019-11-06 23:00 | NUR ---
PT RESTING IN BED, NO ACUTE DISTRESS NOTED.
--- NOTE | 2019-11-07 01:00 | NUR ---
PT RESTING IN BED, NO CHANGES IN STATUS.
--- NOTE | 2019-11-07 03:00 | NUR ---
PT AWAKE IN BED, NO ACUTE DISTRESS NOTED.
[2019-11-07 07:05] LABS: BASOPHILS 0.4 % (0-2); EOSINOPHILS 4.1 % (0-7); HEMATOCRIT 39.1 % (42.0-54.0); HEMOGLOBIN 12.6 g/dL (13.5-17.5); LYMPHOCYTES 18.6 % (15-50); MCH 29.9 pg (26.0-34.0); MCHC 32.2 g/dL (31.0-37.0); MCV 92.7 fL (80.0-100.0); MEAN PLATELET VOLUME 10.7 fL (7.4-10.4); MONOCYTES 8.9 % (2-11); PLATELET COUNT 301 10x3/uL (130-400); RBC 4.22 10x6/uL (4.20-6.10); RDW 13.6 % (11.5-14.5); WBC 5.4 10x3/uL (4.8-10.8)
[2019-11-07 07:25] LABS: ANION GAP 12.2 mmol/L (8-16); CALCIUM 9.1 mg/dL (8.5-10.1); CARBON DIOXIDE 26.3 mmol/L (21.0-32.0); CREATININE - SERUM 2.6 mg/dL (0.6-1.3); POTASSIUM - SERUM 4.5 mmol/L (3.5-5.1)
[2019-11-07 07:28] VITALS: BP 174/100
--- NOTE | 2019-11-07 07:45 | NUR ---
RESTING IN BED, DENIES ANY NEEDS AT THIS TIME, V/S AND ASSESSMENT COMPLETE, C/L AND FLUIDS IN REACH.
--- NOTE | 2019-11-07 12:24 | NUR ---
UP IN W/C EATING LUNCH, DENIES ANY NEEDS AT THIS TIME, C/L AND FLUIDS IN REACH.
--- NOTE | 2019-11-07 14:01 | NUR ---
Nutrition Follow-up: Diet: Diabetic Soft Mech Ground Meat, thin liquids + Glucerna TID PO intake: ~40% average x last 12 meals; he had eaten ~50% of breakfast trays. He does like and drink the Glucerna on trays. Last BM: 11/05/19. WT: 209# (10/17/19), no new weight Meds noted: miralax, lasix. Labs noted: BUN 37(H), Cr 2.6(H), GFR 34(L) Skin: PU to left and right heels Needs new weight. Recommend continue current diet (or per SOLE LEATHER CUTTING MACHINE OPERATOR). Continue Glucerna TID. RD following.
--- NOTE | 2019-11-07 15:58 | NUR ---
RESTING IN BED WITH EYES CLOSED, NO S/S OF DISTRESS NOTED, RESP EVEN AND UNLABORED, C/L AND FLUIDS IN REACH.
--- NOTE | 2019-11-07 21:07 | NUR ---
PT IS DONE EATING HIS SUPPER. VOICES"IM JUST CHILLIN". NO C/O OF PAIN OR NEEDS. RESPOSITIONED IN BED TO LEFT SIDE AND BRIDGED HEALS OFF BED. BED IS LEFT LOW,SIDE RAISLX2,CALL LIGHT WIHTIN REACH. WILL CONITNUE TO MONITOR
[2019-11-07 22:05] VITALS: BP 154/97
--- NOTE | 2019-11-07 23:02 | NUR ---
PT IS RESTING IN BED WITH EYES CLOSED . REPSOTIONED FOR COMFORT. HEELS ARE BRIDGED OFF BED. BED IS LEFT LOW,SIDE RAISLX2,CALL LIGHT WITHIN REACH. WILL CONTINUE TO MONITOR
--- NOTE | 2019-11-08 01:12 | NUR ---
PT IS RESTING IN BED ON LEFT SIDE WITH EYES CLOSED. RR ARE EQUAL AND REGULAR. SKIN IS PINK AND WARM. REPOSITIONED FOR COMFORT AND BRIDGED FEET OFF BED. NO NEEDS OR PAIN WAS VOICED. BED WAS LEFT LOW,SIDE RAILSX2,CALL LIGHT WITHIN REACH. WILL CONITNUE TO [facility]
--- NOTE | 2019-11-08 02:57 | NUR ---
PT IS RESTING IN BED WITH EYES CLOSED. AWAKES EASILY. HE VOICES"I NEED TO PEE". ASSSIITED HIM WITH HIS URINAL AND HE VOIDED 500ML OF DARK YELLOW URINE. REPOSITIONED FOR COMFORT. HEELS ARE BRIDGED OFF BED. NO OTHER NEEDS OR COMPLAINTS WERE VOICED. BED IS LOW,SIDE RAISLX2,CALL LIGHT WITHIN REACH. WILL CONINTUE TO MONITOR
--- NOTE | 2019-11-08 04:57 | NUR ---
PT IS RESTING IN BED WITH EYES CLOSED. RR EQUAL AND UNLABORED. SKIN IS WARM AND PINK. BED IS LEFT LOW,SIDE RAISLX2,CALL LIGHT WITHIN REACH. WILL CONTINUE TO MONITOR
--- NOTE | 2019-11-08 06:22 | NUR ---
PT IS RESTING IN BED WITH EYES CLOSED. AWAKES EASILY. VOICES"IM DOING GOOD". NO NEEDS OR COMPLAINTS VIOCED. I REPOSOTION HIM FOR COMFORT AND BRIDGE HEELS OFF BED. BED IS LEFT LOW,SIDE RAISLX2,[facility]. WILL CONINTUE TO MONITOR
[2019-11-08 07:00] VITALS: BP 164/97
--- NOTE | 2019-11-08 07:47 | NUR ---
LYING IN BED AWAKE AT THIS TIME. DENIES ANY NEEDS. VSS. WILL CONTINUE PLAN OF CARE.
--- NOTE | 2019-11-08 09:01 | NUR ---
UP IN CHAIR EATING BREAKFAST AT THIS TIME. VSS. NO ACUTE DISTRESS NOTED. PT EATS WITH SET UP ASSIST. WILL CONTINUE PLAN OF CARE.
--- NOTE | 2019-11-08 09:42 | NUR ---
UP IN CHAIR IN DAY ROOM WORKING WITH THERPISTS. NO ACUTE DISTRESS NOTED. WILL CONTINUE PLAN OF CARE.
--- NOTE | 2019-11-08 10:36 | NUR ---
PT PROVIDED OWN BATH WITH WIPES. SHOWER OFFERED TO PT, SHE STATED SHE DECLINED STATING SHE FELT CLEAN ALREAY. PT HAD CHANGED CLOTHES INDEPENDENTLY, HOWEVER REQUESTED FOR STAFF TO PLACE NEW SOCKS ON AFTER SHE INDEPENENTLY REMOVED OLD SOCKS. PTS INDEPENDENCE ENCOURAGED AT THIS TIME WITH RADHA WITH OCCUPATIONAL THERAPY IN ROOM. PT THEN ASSISTED TO PLACE SOCKS ON USING ASSISTANCE DEVICE. NO ACUTE DISTRESS NOTED. WILL CONTINUE PLAN OF CARE.
--- NOTE | 2019-11-08 11:25 | NUR ---
LYING IN BED AWAKE AT THIS TIME. DENIES ANY NEEDS. CALL LIGHT IN REACH. WILL CONTINUE PLAN OF CARE.
--- NOTE | 2019-11-08 12:26 | NUR ---
LUNCH TRAY OFFERED TO PT, HE STATED HE DID NOT WANT TO EAT BECAUSE HE IS SLEEPY. CALL LIGHT IN REACH. PT STATED HE WOULD NOTIFY STAFF WHEN HE WAS READY TO EAT. WILL CONTINUE PLAN OF CARE.
--- NOTE | 2019-11-08 14:50 | NUR ---
INCONTINENT BOWEL MOVEMENT NOTED AT THIS TIME, MEDIUM SIZED FORMED BROWN. CHG BATH PROVIDED ALONG WITH EMELY CARE AND TOTAL LINEN CHANGE. NO ACUTE DISTRESS NOTED. PT DENIES ANY NEEDS AND STATES HE FEELS MUCH BETTER NOW. WILL CONTINUE PLAN OF CARE.
--- NOTE | 2019-11-08 16:02 | NUR ---
NO ACUTE DISTERSS NOTED. NO CHANGE. LYING IN BED AWAKE. CALL LIGHT IN REACH. WILL CONTINUE PLAN OF CARE.
--- NOTE | 2019-11-08 17:46 | NUR ---
UP IN BED AWAKE VISITING WITH FAMILY AT THIS TIME. DENIES ANY NEEDS. NO ACUTE DISTRESS NOTED. WILL CONTINUE PLAN OF CARE.
--- NOTE | 2019-11-08 19:05 | NUR ---
PATIENT RESTING IN BED AND DENIES NEEDS AT THIS TIME. BED IN LOWEST POSITION AND CALL LIGHT WITHIN REACH. ENCOURAGED THE PATIENT TO CALL IF HE HAS NEEDS. WILL CONTINUE TO MONITOR.
[2019-11-08 20:08] VITALS: BP 124/67
--- NOTE | 2019-11-09 01:10 | NUR ---
RECEIVED REPORT FROM ALBERT HAIDER. PT LYING IN BED ON RIGHT SIDE EYES CLOSED RESTING COMFORTABLY. RR EVEN AND UNLABORED. LEFT ARM ELEVATED AND HEELS BRIDGED. CALL LIGHT WITHIN REACH. FALL PRECAUTIONS IN PLACE. CPOC
--- NOTE | 2019-11-09 04:00 | NUR ---
PERFORMED INCONTINENCE CARE. LARGE URINE INCONTINENCE AND LARGE BM DIARRHEA LIGHT BROWN. REPOSITIONED ON LEFT SIDE. PT DENIES ANY OTHER NEEDS AT THIS TIME. CALL LIGHT WITHIN REACH. FALL PRECAUTIONS IN PLACE. CPOC
--- NOTE | 2019-11-09 06:31 | NUR ---
PT LYING IN BED EYES CLOSED RESTING QUIETLY. BRIEF CLEAN AND DRY. NO SIGNS OF ACUTE DISTRESS NOTED. CALL LIGHT WITHIN REACH. BED ALARM ON. CPOC
[2019-11-09 10:09] VITALS: BP 130/70
--- NOTE | 2019-11-09 11:21 | NUR ---
MEDS CRUSHED AND GIVEN. MEAL TRAY SET UP DONE AND PT DID NOT EAT. ASSISTED WITH APPLE SAUCE AND PROTEIN DRINK. BP 170/100. CARDURA GIVEN.
--- NOTE | 2019-11-09 18:50 | NUR ---
BEDSIDE REPORT COMPLETE. PT SITTING UP IN BED EATING DINNER ASSISTED BY SON. NO CONCERNS OR NEEDS VOICED FROM PT OR PT'S SON. PT C/O DULL ACHE GENERALIZED. PAIN MEDICATION ADMININSTERED BY DAY SHIFT MELIZA FOSTER. NO SIGNS OF ACUTE DISTRESS NOTED. CALL LIGHT WITHIN REACH. FALL PRECAUTIONS IN PLACE. CPOC
[2019-11-09 21:35] VITALS: BP 124/77
--- NOTE | 2019-11-09 23:57 | NUR ---
PT LYING IN BED EYES CLOSED RESTING QUIETLY. RR EVEN AND UNLABORED. CALL LIGHT WITHIN REACH. FALL PRECAUTIONS IN PLACE. CPOC
--- NOTE | 2019-11-10 02:29 | NUR ---
PT LYING IN BED EYES CLOSED RESTING. BRIEF CLEAN AND DRY. RR EVEN AND UNLABORED. CALL LIGHT WITHIN REACH. FALL PRECAUTIONS IN PLACE. CPOC
--- NOTE | 2019-11-10 07:08 | NUR ---
A/A/PX4. HELPED POSITION IN BED FOR BREAKFAST. NO COMPLAINTS OR REQUESTS VOICED. SIDERAILS UP X 2, CALL LIGHT AND WATER IN REACH, BED IN LOW LOCKED POSITION.
[2019-11-10] MEDS ORDERED: HYDROCODON-ACE1 EAC7 PO (07:29)
[2019-11-10 08:00] VITALS: BP 146/86
--- NOTE | 2019-11-10 19:45 | NUR ---
PATIENT RECEIVED SITTING UP IN BED. MOTHER AT BEDSIDE. ASSESMENT & VITAL SIGNS DONE. CALLUS ON LEFT HEEL INTACT. NO C/O PAIN OR DISTRESS. BED LOW. CALL LIGHT WITHIN REACH. WILL CONTINUE TO MONITOR.
[2019-11-10 21:53] VITALS: BP 115/68
--- NOTE | 2019-11-11 01:59 | NUR ---
PATIENT EYES CLOSED. RESPIRATIONS 18 & EVEN. BED LOW. CALL LIGHT WITHIN REACH. WILL CONTINUE TO MONITOR.
--- NOTE | 2019-11-11 02:34 | NUR ---
I have reviewed this patient and I concur with the Shift Assessment completed by the Licensed Practical Nurse today this shift.
--- NOTE | 2019-11-11 07:49 | NUR ---
AWAKE AND ALERT RESTING IN BED, DENIES ANY NEEDS AT THIS TIME, ASSESSMENT COMPLETE, C/L AND FLUIDS IN REACH.
[2019-11-11 08:00] VITALS: BP 147/80
--- NOTE | 2019-11-11 11:57 | NUR ---
UP IN W/C SITTING BEDSIDE, DENIES ANY NEEDS AT THIS TIME, C/L AND FLUIDS IN REACH.
--- NOTE | 2019-11-11 13:00 | NUR ---
I have reviewed this patient and I concur with the Shift Assessment completed by the Licensed Practical Nurse today this shift.
--- NOTE | 2019-11-11 15:56 | NUR ---
RESTING IN BED WITH EYES CLOSED, RESP EVEN AND UNLABORED, NO S/S OF DISTRESS NOTED, C/L AND FLUIDS IN REACH.
--- NOTE | 2019-11-11 19:28 | NUR ---
PATIENT RECEIVED LAYING IN BED. ASSESSMENT & VITAL SIGNS DONE. NO C/O PAIN OR DISTRESS. BED LOW. SON IN ROOM. CALL LIGHT WITHIN REACH. WILL CONTINUE TO MONITOR.
[2019-11-11 21:16] VITALS: BP 124/73
--- NOTE | 2019-11-12 02:20 | NUR ---
I have reviewed this patient and I concur with the Shift Assessment completed by the Licensed Practical Nurse today this shift.
--- NOTE | 2019-11-12 02:30 | NUR ---
PATIENT EYES CLOSED. RESPIRATIONS 18 & EVEN. BED LOW. CALL LIGHT WITHIN REACH. WILL CONTINUE TO MONITOR.
--- NOTE | 2019-11-12 07:15 | NUR ---
AWAKE AND ALERT RESTING IN BED, DENIES ANY NEEDS AT THIS TIME, ASSESSMENT COMPLETE, C/L AND FLUIDS IN REACH.
[2019-11-12 08:00] VITALS: BP 154/90
--- NOTE | 2019-11-12 12:06 | NUR ---
SITTING UP IN W/C VISITING WITH SON, DENIES ANY NEEDS AT THIS TIME, C/L AND FLUIDS IN REACH.
--- NOTE | 2019-11-12 13:46 | NUR ---
Nutrition Follow-up: Diet: Diabetic [facility] Soft/Ground meat + Glucerna TID PO intake: ~46% average x last 6 meals; discussed in care team meeting. He is now able to feed himself. Appetite seems to continue to improve with improved mentation. He is drinking all of the Glucerna being sent on meal trays. Last BM: 11/09/19. WT: 209# (10/17/19), no new weight Meds noted: miralax, MagOx, lasix. No new labs. Needs a new weight. Recommend continue current diet or per INSPECTOR BALANCE BRIDGE recommendations. Continue oral nutrition supplement. RD following.
--- NOTE | 2019-11-12 16:05 | NUR ---
RESTING IN BED WITH EYES CLOSED, NO S/S OF DISTRESS NOTED, RESP EVEN AND UNLABORED, C/L AND FLUIDS IN REACH.
--- NOTE | 2019-11-12 16:22 | NUR ---
CARE TEAM MEETING: PATIENT AND SON ATTENDED THE MEETING. THEIR QUESTIONS AND CONCERNS WERE ADDRESSED. PATIENT WILL BE RA AT NEXT MEETING. WILL CONTINUE TO FOLLOW WITH PATIENT.
--- NOTE | 2019-11-12 19:15 | NUR ---
ASSESSMENT PER FLOW SHEET, VS OBTAINED PER ASPHALT COATER, PT HAD BM YESTERDAY, REPORTS FLATUS, AND INCONTINENT AT TIMES, PT RATES LEFT SIDED PAIN 2/10, DENIES NEED FOR PAIN MED AT THIS TIME, BED IN LOW POSITION, SIDE RAILS X 2, CALL LIGHT IN REACH
--- NOTE | 2019-11-12 20:30 | NUR ---
PT AWAKE VISITING WITH SON
[2019-11-12 20:59] VITALS: BP 128/73
--- NOTE | 2019-11-12 21:19 | NUR ---
PT AWAKE, PT C/O LEFT SIDED PAIN, ADM 2100 MEDS AND PAIN MED PER MD ORDERS, SEE EMAR, CRUSHED IN APPLESAUCE, SAMARIA WELL, PT REPOSITIONED IN BED PER THIS RN AND ANNIE RN, CHARGE NURSE, PT DENIES FURTHER NEEDS, BED IN LOW POSITION, SIDE RAILS X 2, BED IN LOW POSITION, SIDE RAILS X 2, CALL LIGHT IN REACH
--- NOTE | 2019-11-12 22:30 | NUR ---
PT RESTING WITH EYES CLOSED, RESP QUIET, NO DISTRESS NOTED, LEFT UNDISTURBED AT THIS TIME, BED IN LOW POSIITON, SIDE RAILS X 2, CALL LIGHT IN REACH
--- NOTE | 2019-11-13 00:28 | NUR ---
PT RESTING WITH EYES CLOSED, AROUSES TO SOFT VERBAL STIMULATION, PT INC AT THIS TIME, PT CLEANED UP WITH WET WARM WASH CLOTHS, BRIEF CHANGED, CLEAN PINK PT AND WHITE CHUX, PT DENIES FURTHER NEEDS OR PAIN, BED IN LOW POSITION, SIDE RAILS X 2, CALL LIGHT IN REACH
--- NOTE | 2019-11-13 01:27 | NUR ---
PT RESTING WITH EYES CLOSED, RESP QUIET, NO DISTRESS NOTED, LEFT UNDISTURBED AT THIS TIME, BED IN LOW POSITON, SIDE RAILS X 2, CALL LIGHT IN REACH, BED ALARM ON AND WORKING PROPERLY
--- NOTE | 2019-11-13 06:18 | NUR ---
PT LYING IN BED EYES CLOSED RESTING QUIETLY. RR EVEN AND UNLABORED. CALL LIGHT WITHIN REACH. FALL PRECAUTIONS IN PLACE. CPOC
--- NOTE | 2019-11-13 07:30 | NUR ---
RESTING QUIETLY IN BED WITH EYES CLOSED,AROUSES EASILY TO VERBAL STIMULI.ASSESSMENT COMPLETED.CL IN EASY REACH,BED IN LOW POSITION AND BED ALARM ON AND WORKING.WILL CONTINUE WITH CURRENT PLAN OF CARE.
[2019-11-13 08:00] VITALS: BP 143/87
--- NOTE | 2019-11-13 19:10 | NUR ---
PT LYING IN BED WATCHING TV. CL IN REACH. DENIES NEEDS AT THIS TIME. BED IN LOW SIDE RAILS X2. A/O X4. LUNGS CLEAR. BOWEL ACTIVE X4. LEFT SIDE FLACCID. RESP EVEN AND UNLABORED. WILL CONTINUE TO MONITOR.
[2019-11-13 21:38] VITALS: BP 137/70
--- NOTE | 2019-11-13 23:00 | NUR ---
I have reviewed this patient and I concur with the Shift Assessment completed by the Licensed Practical Nurse today this shift.
--- NOTE | 2019-11-14 01:45 | NUR ---
PT RESTING QUIETLY. CL IN REACH. NO DISTRESS NOTED. WCTM
[2019-11-14 06:31] LABS: BASOPHILS 0.4 % (0-2); EOSINOPHILS 4.1 % (0-7); HEMATOCRIT 36.8 % (42.0-54.0); HEMOGLOBIN 11.9 g/dL (13.5-17.5); IMMATURE GRANULOCYTES 0.2 % (0-5); LYMPHOCYTES 16.3 % (15-50); MCH 29.7 pg (26.0-34.0); MCHC 32.3 g/dL (31.0-37.0); MCV 91.8 fL (80.0-100.0); MEAN PLATELET VOLUME 11.1 fL (7.4-10.4); MONOCYTES 10.1 % (2-11); NEUTROPHILS 68.9 % (40-80); PLATELET COUNT 266 10x3/uL (130-400); RBC 4.01 10x6/uL (4.20-6.10); RDW 13.7 % (11.5-14.5); WBC 4.7 10x3/uL (4.8-10.8)
[2019-11-14 06:51] LABS: ANION GAP 15.5 mmol/L (8-16); CARBON DIOXIDE 23.6 mmol/L (21.0-32.0); CREATININE - SERUM 2.6 mg/dL (0.6-1.3); POTASSIUM - SERUM 4.1 mmol/L (3.5-5.1)
[2019-11-14 08:00] VITALS: BP 147/93
--- NOTE | 2019-11-14 20:00 | NUR ---
PATIENT RECEIVED SITTING UP IN CHAIR AT BEDSIDE. PATIENT 2 PERSON MAX ASSIST BACK INTO BED. ASSESSMENT & VITAL SIGNS DONE. NO C/O PAIN OR DISTRESS. SON ARRIVED, FILLED OUT MENU. BED LOW. CALL LIGHT WITHIN REACH. WILL CONTINUE TO MONITOR.
[2019-11-14 21:41] VITALS: BP 131/83
--- NOTE | 2019-11-15 03:28 | NUR ---
I have reviewed this patient and I concur with the Shift Assessment completed by the Licensed Practical Nurse today this shift.
--- NOTE | 2019-11-15 03:49 | NUR ---
PATIENT EYES CLOSED. RESPIRATIONS 18 & EVEN. BED LOW. CALL LIGHT WITHIN REACH. WILL CONTINUE TO MONITOR.
[2019-11-15 08:30] VITALS: BP 135/89
--- NOTE | 2019-11-15 16:00 | NUR ---
I have reviewed this patient and I concur with the Shift Assessment completed by the Licensed Practical Nurse today this shift.
--- NOTE | 2019-11-15 18:00 | NUR ---
A/A/OX4. NO REQUESTS VOICED. SIDERAILS UP X 2, CALL LIGHT AND FLUIDS IN REACH, BED IN LOW LOCKED POSITION. NO APPARENT PROBLEMS AT THIS TIME.
[2019-11-15 20:00] VITALS: BP 135/83
--- NOTE | 2019-11-15 20:00 | NUR ---
PATIENT RECEIVED SITTING UP IN BED. MOTHER AT BEDSIDE. ASSESMENT & VITAL SIGNS DONE. NO C/O PAIN OR DISTRESS. BED LOW. CALL LIGHT WITHIN REACH. WILL CONTINUE TO MONITOR.
--- NOTE | 2019-11-16 02:24 | NUR ---
I have reviewed this patient and I concur with the Shift Assessment completed by the Licensed Practical Nurse today this shift.
--- NOTE | 2019-11-16 05:16 | NUR ---
PATIENT AWAKE & DRY THIS LAST ROUND. BED LOW. CALL LIGHT WITHIN REACH. WILL CONTINUE TO MONITOR.
--- NOTE | 2019-11-16 06:58 | NUR ---
POSITIONED ON BACK AND RESTING WITH EYES CLOSED. RESP EVEN AND UNLABORED ON RA. SIDERAILS UP X 2, CALL LIGHT AND FLUIDS IN REACH, BED IN LOW LOCKED POSITION. NO APPARENT NEEDS AT THIS TIME.
[2019-11-16 12:24] VITALS: BP 135/87
--- NOTE | 2019-11-16 15:00 | NUR ---
I have reviewed this patient and I concur with the Shift Assessment completed by the Licensed Practical Nurse today this shift.
[2019-11-16 19:30] VITALS: BP 150/94
--- NOTE | 2019-11-16 20:00 | NUR ---
PATIENT RECEIVED SITTING UP IN BED. SON AT BEDSIDE. ASSESSMENT & VITAL SIGNS DONE. BED LOW. CALL LGITH WITHIN REACH. WILL CONTINUE TO MONITOR.
--- NOTE | 2019-11-17 03:36 | NUR ---
PATIENT EYES CLOSED. RESPIRATIONS 18 & EVEN. BED LOW. URINAL & CALL LIGHT WITHIN REACH. WILL CONTINUE TO MONITOR.
--- NOTE | 2019-11-17 03:39 | NUR ---
I have reviewed this patient and I concur with the Shift Assessment completed by the Licensed Practical Nurse today this shift.
[2019-11-17 06:55] LABS: BASOPHILS 0.3 % (0-2); EOSINOPHILS 1.6 % (0-7); HEMOGLOBIN 12.3 g/dL (13.5-17.5); IMMATURE GRANULOCYTES 0.3 % (0-5); LYMPHOCYTES 13.8 % (15-50); MCH 29.6 pg (26.0-34.0); MCHC 32.4 g/dL (31.0-37.0); MCV 91.6 fL (80.0-100.0); MEAN PLATELET VOLUME 10.5 fL (7.4-10.4); MONOCYTES 13.2 % (2-11); NEUTROPHILS 70.8 % (40-80); PLATELET COUNT 263 10x3/uL (130-400); RBC 4.15 10x6/uL (4.20-6.10); RDW 13.9 % (11.5-14.5); WBC 6.4 10x3/uL (4.8-10.8)
[2019-11-17 07:16] LABS: CALCIUM 8.8 mg/dL (8.5-10.1); CARBON DIOXIDE 26.2 mmol/L (21.0-32.0); CREATININE - SERUM 2.1 mg/dL (0.6-1.3); POTASSIUM - SERUM 4.2 mmol/L (3.5-5.1)
[2019-11-17 08:00] VITALS: BP 133/79
--- NOTE | 2019-11-17 08:05 | NUR ---
SITTING UP IN BED EATING BREAKFAST, DENIES ANY NEEDS AT THIS TIME, C/L AND FLUIDS IN REACH.
--- NOTE | 2019-11-17 10:15 | NUR ---
ASSESSMENT COMPLETE, DENIES ANY NEEDS, C/L AND FLUIDS IN REACH.
--- NOTE | 2019-11-17 12:02 | NUR ---
UP IN W/C, DENIES ANY NEEDS AT THIS TIME, C/L AND FLUIDS IN REACH.
--- NOTE | 2019-11-17 16:01 | NUR ---
RESTING IN BED WITH EYES CLOSED, NO S/S OF DISTRESS NOTED, RESP EVEN AND UNLABORED, C/L AND FLUIDS IN REACH.
--- NOTE | 2019-11-17 19:12 | NUR ---
PT LYING IN BED WATCHING TV SON IN ROOM. CL IN REACH. DENIES NEEDS AT THIS TIME. BED IN LOW SIDE RAILS X2. A/O X4. LUNGS CLEAR. BOWEL ACTIVE X4. LEFT SIDE FLACCID. PILLOW UNDER RIGHT SIDE. RESP EVEN AND UNLABORED. WILL CONTINUE TO MONITOR.
[2019-11-17 21:38] VITALS: BP 125/70
--- NOTE | 2019-11-18 07:30 | NUR ---
RESTING QUIETLY IN BED.DENIES NEEDS AT PRESENT.ASSESSMENT COMPLETED.WILL CONTINUE WITH CURRENT PLAN OF CARE.CL IN EASY REACH,BED IN LOW POSITION.
[2019-11-18 08:19] VITALS: BP 136/79
--- NOTE | 2019-11-18 11:15 | NUR ---
NUTRITION FOLLOW UP: INTERVIEW: Met with patient this am. He stated his appetite has been okay. He denied recent N/V/D/C and denied new chewing/swallowing issues. He stated that he enjoys and tolerates the Glucernas with his meals. DIET: Diabetic Diet w/ Ground Meats SUPPLEMENT: Glucerna TID PO INTAKE: 72% avg x 9 meals WEIGHT: 209 lbs on October 16. No new wt recorded BM: x 1 on 11/16 SIG MEDS: Nystatin, Mag Ox, Lasix, Folic Acid, Miralax SIG LABS: 11/16- Na: 135(L), Creatinine: 2.1(H), BUN: 24(H) RD to continue to follow and monitor patient DHS
--- NOTE | 2019-11-18 20:10 | NUR ---
RECIEVED BEDSIDE SHIFT REPORT. ALERT AND ORIENTED X4. LEFT SIDE FLACCID R/T RECENT CVA. LEANING TO RT. REPOSITIONED WITH ASSIST X2. DOES TRY TO HELP. USES URINAL IN BED. DENIES ANY NEEDS AT THIS TIME.
[2019-11-18 21:50] VITALS: BP 136/82
[2019-11-19 08:20] VITALS: BP 122/71
[2019-11-19 09:10] LABS: BASOPHILS 0.9 % (0-2); EOSINOPHILS 2.4 % (0-7); HEMATOCRIT 35.9 % (42.0-54.0); HEMOGLOBIN 11.6 g/dL (13.5-17.5); IMMATURE GRANULOCYTES 0.4 % (0-5); LYMPHOCYTES 9.6 % (15-50); MCH 29.7 pg (26.0-34.0); MCHC 32.3 g/dL (31.0-37.0); MCV 92.1 fL (80.0-100.0); MEAN PLATELET VOLUME 10.8 fL (7.4-10.4); MONOCYTES 19.6 % (2-11); NEUTROPHILS 67.1 % (40-80); PLATELET COUNT 278 10x3/uL (130-400); RDW 14.1 % (11.5-14.5)
[2019-11-19 09:14] LABS: ANION GAP 14.6 mmol/L (8-16); CALCIUM 9.5 mg/dL (8.5-10.1); CARBON DIOXIDE 24.4 mmol/L (21.0-32.0); CREATININE - SERUM 2.1 mg/dL (0.6-1.3)
[2019-11-19 09:15] LABS: WBC 4.5 10x3/uL (4.8-10.8)
--- NOTE | 2019-11-19 19:38 | NUR ---
PATIENT RECIEVED SITTING UP IN WHEELCHAIR AT BEDSIDE. CALL LIGHT WITHIN REACH. ASSESSMENT & VITAL SIGNS DONE. WILL CONTINUE TO MONITOR.
--- NOTE | 2019-11-20 02:48 | NUR ---
PATIENT EYES CLOSED. RESPIRATIONS 18 & EVEN. BED LOW. CALL LIGHT WITHIN REACH. WILL CONTINUE TO MONITOR.
--- NOTE | 2019-11-20 02:54 | NUR ---
I have reviewed this patient and I concur with the Shift Assessment completed by the Licensed Practical Nurse today this shift.
--- NOTE | 2019-11-20 07:45 | NUR ---
RESTING QUIETLY IN BED.AROUSES EASILY FOR ASSESSMENT.DENIES NEEDS.WILL COTINUE WITH CURRENT PLAN OF CARE.CL IN EASY REACH,BED IN LOW POSITION.
[2019-11-20 08:00] VITALS: BP 138/82
--- NOTE | 2019-11-20 15:29 | NUR ---
CARE TEAM MEETING: PATIENT AND SON ATTENDED THE MEETING. PATIENT WILL DISCHARGE HOME WITH HIS FAMILY ON 11/28/19. WILL CONTINUE TO FOLLOW WITH PATIENT.
--- NOTE | 2019-11-20 20:00 | NUR ---
PATIENT RECEIVED SITTING UP IN BED. ASSESSMENT & VITAL SIGNS DONE. NO C/O PAIN OR DISTRESS. BED LOW. CALL LIGHT WITHIN REACH. WILL CONTINUE TO MONITOR.
[2019-11-20 21:45] VITALS: BP 132/81
--- NOTE | 2019-11-21 02:50 | NUR ---
I have reviewed this patient and I concur with the Shift Assessment completed by the Licensed Practical Nurse today this shift.
[2019-11-21 05:56] LABS: BASOPHILS 0.5 % (0-2); EOSINOPHILS 3.4 % (0-7); HEMATOCRIT 34.5 % (42.0-54.0); HEMOGLOBIN 11.2 g/dL (13.5-17.5); IMMATURE GRANULOCYTES 0.3 % (0-5); LYMPHOCYTES 29.1 % (15-50); MCH 29.9 pg (26.0-34.0); MCHC 32.5 g/dL (31.0-37.0); MEAN PLATELET VOLUME 10.2 fL (7.4-10.4); MONOCYTES 13.1 % (2-11); NEUTROPHILS 53.6 % (40-80); PLATELET COUNT 281 10x3/uL (130-400); RBC 3.75 10x6/uL (4.20-6.10); WBC 3.9 10x3/uL (4.8-10.8)
[2019-11-21 06:06] LABS: ANION GAP 10.8 mmol/L (8-16); CALCIUM 8.9 mg/dL (8.5-10.1); CARBON DIOXIDE 26.9 mmol/L (21.0-32.0); CREATININE - SERUM 2.5 mg/dL (0.6-1.3); POTASSIUM - SERUM 3.7 mmol/L (3.5-5.1)
--- NOTE | 2019-11-21 07:45 | NUR ---
A/A/OX4. PULLED UP IN BED AND POSITIONED FOR COMFORT AND ABILITY TO EAT HIS MORNING MEAL. DENIES ANY NEEDS AT PRESENT TIME AND DENIES ANY PAIN. CALL LIGHT IN REACH, BED IN LOW LOCKED POSITION. WILL CONTINUE POC
[2019-11-21 08:00] VITALS: BP 169/89
--- NOTE | 2019-11-21 11:15 | NUR ---
UP TO SHOWER WITH OT AND PTS SON. TOLERATED WELL. UP IN W.C AT PRESENT TIME.
--- NOTE | 2019-11-22 02:23 | NUR ---
1930) REC'D IN BED LYING ON LEFT SIDE.EYES CLOSED RESP. DEEP AND EVEN.WILL CONTINUE TO MONITOR FOR ANY CHGES AND FOLLOW CURRENT PLAN OF CARE..
--- NOTE | 2019-11-22 08:00 | NUR ---
A/A/OX4. ASSISTED UP IN BED AND BREAKFAST SET UP FOR HIM. FEEDING SELF WITH NO REQUESTS VOICED. CALL LIGHT IN REACH AND BED IN LOW LOCKED POSITION.
[2019-11-22 12:26] VITALS: BP 141/85
--- NOTE | 2019-11-22 14:30 | NUR ---
LEFT FLOOR VIA W/C TO PRIVATE CAR WITH SON FOR HIS PASS FOR THE DAY.
--- NOTE | 2019-11-22 20:00 | NUR ---
PATIENT OUT WITH FAMILY.
--- NOTE | 2019-11-22 22:54 | NUR ---
PATIENT RETURNED AT THIS TIME. ASSESSMENT & VITAL SIGNS DONE. NO C/O PAIN OR DISTRESS. 2 PERSON ASSIST BACK INTO LOW BED. CALL LIGHT WITHIN REACH. WILL CONTINUE TO MONITOR.
[2019-11-22 22:58] VITALS: BP 128/76
--- NOTE | 2019-11-23 01:54 | NUR ---
PATIENT EYES CLOSED. RESPIRATIONS 18 & EVEN. BED LOW. CALL LIGHT WITHIN REACH. WILL CONTINUE TO MONITOR.
--- NOTE | 2019-11-23 04:11 | NUR ---
I have reviewed this patient and I concur with the Shift Assessment completed by the Licensed Practical Nurse today this shift.
[2019-11-23 10:48] VITALS: BP 144/85
[2019-11-23 20:00] VITALS: BP 130/78
--- NOTE | 2019-11-23 20:00 | NUR ---
PATIENT RECEIVED SITTING UP IN BED. ASSESSMENT & VITAL SIGNS DONE. NO C/O PAIN OR DISTRESS. BED LOW. CALL LIGHT WITHIN [facility]. WILL CONTINUE TO MONITOR.
--- NOTE | 2019-11-24 02:12 | NUR ---
PATIENT EYES CLOSED. RESPIRATIONS 18 & EVEN. BED LOW. URINAL & CALL LIGHT WITHIN REACH. WILL CONTINUE TO MONITOR.
--- NOTE | 2019-11-24 02:38 | NUR ---
I have reviewed this patient and I concur with the Shift Assessment completed by the Licensed Practical Nurse today this shift.
[2019-11-24 08:05] LABS: BASOPHILS 0.2 % (0-2); EOSINOPHILS 2.5 % (0-7); HEMATOCRIT 37.6 % (42.0-54.0); HEMOGLOBIN 12.2 g/dL (13.5-17.5); IMMATURE GRANULOCYTES 0.2 % (0-5); LYMPHOCYTES 22.2 % (15-50); MCH 29.7 pg (26.0-34.0); MCHC 32.4 g/dL (31.0-37.0); MCV 91.5 fL (80.0-100.0); MONOCYTES 11.4 % (2-11); NEUTROPHILS 63.5 % (40-80); PLATELET COUNT 302 10x3/uL (130-400); RBC 4.11 10x6/uL (4.20-6.10); RDW 13.7 % (11.5-14.5); WBC 4.8 10x3/uL (4.8-10.8)
[2019-11-24 08:18] LABS: CALCIUM 8.8 mg/dL (8.5-10.1); CARBON DIOXIDE 25.8 mmol/L (21.0-32.0); CREATININE - SERUM 2.1 mg/dL (0.6-1.3); POTASSIUM - SERUM 3.8 mmol/L (3.5-5.1)
--- NOTE | 2019-11-24 08:42 | NUR ---
ALERT AND ORIENTED. NO C/O PAIN. REPOSITIONED IN BED.
[2019-11-24 08:48] VITALS: BP 140/80
--- NOTE | 2019-11-24 13:05 | NUR ---
SITTING IN CHAIR EATING LUNCH. NO DISTRESS NOTED.
--- NOTE | 2019-11-24 13:43 | NUR ---
Nutrition Follow-up: Diet: Diabetic Soft Mech Ground Meat + glucerna TID PO intake: ~73% x last 10 meals; he states that his appetite is good. He is still drinking Glucerna with meals. Last BM: 11/20/19. WT: 209# (10/17/19), no new weight Meds notes: MagOx, lasix. Labs noted: BUN 30(H), Cr 2.1(H), GFR 43(L) Skin: open area L heel healing Needs new weight. Recommend continue current diet. RD following.
--- NOTE | 2019-11-24 17:54 | NUR ---
NO CHANGE IN ASSESSMENT. NO C/O PAIN. CL IN REACH.
--- NOTE | 2019-11-24 20:00 | NUR ---
RESTIDENT IS LYING IN BED WATCHING TV. ALERT AND ORIENTED X 3. DENIES ACUTE PAIN OR DISCOMFORT AT THIS TIME. HIS LEFT SIDE IS FLACCID. PT ASSISTED TO SLIDE UP IN THE BED WITH MAX ASSIST. URINAL EMPTIED AT THIS TIME. SR'S ARE UP X 2 IN BED. CALL LIGHT AND BEDSIDE TABLE ARE WITHIN [facility] REACH.
[2019-11-24 21:40] VITALS: BP 126/86
--- NOTE | 2019-11-24 22:51 | NUR ---
PT RESTING QUIETLY IN BED WITH EYES CLOSED. NO DISTRESS NOTED.
--- NOTE | 2019-11-25 02:43 | NUR ---
I have reviewed this patient and I concur with the Shift Assessment completed by the Licensed Practical Nurse today this shift.
--- NOTE | 2019-11-25 05:57 | NUR ---
PT RESTING IN BED WITH EYES OPEN. NO NEEDS VOICED.
[2019-11-25 08:00] VITALS: BP 116/64
--- NOTE | 2019-11-25 08:00 | NUR ---
SITTING UP IN BED EATING BREAKFAST, DENIES ANY NEEDS AT THIS TIME, C/L AND FLUIDS IN REACH.
--- NOTE | 2019-11-25 12:00 | NUR ---
UP IN W/C EATING LUNCH, DENIES ANY NEEDS AT THIS TIME, C/L AND FLUIDS IN REACH.
--- NOTE | 2019-11-25 12:26 | NUR ---
I have reviewed this patient and I concur with the Shift Assessment completed by the Licensed Practical Nurse today this shift.
--- NOTE | 2019-11-25 20:33 | NUR ---
AWAKE AND ALERT. SITTING IN WHEELCHAIR. ASSISTED TO BED. RESPIRATIONS UNLABORED. NO DISTRESS NOTED. LEFT SIDE FLACCID.
[2019-11-25 22:02] VITALS: BP 119/77
--- NOTE | 2019-11-26 01:17 | NUR ---
RESTING QUIETLY IN BED. REPSIRATIONS UNLABORED. NO DISTRESS NOTED.
--- NOTE | 2019-11-26 02:53 | NUR ---
CONTINUES SLEEPING WITH NO DISTRESS NOTED.
[2019-11-26 07:27] LABS: BASOPHILS 0.4 % (0-2); EOSINOPHILS 3.4 % (0-7); HEMATOCRIT 35.9 % (42.0-54.0); HEMOGLOBIN 11.6 g/dL (13.5-17.5); IMMATURE GRANULOCYTES 0.2 % (0-5); LYMPHOCYTES 25.7 % (15-50); MCH 29.1 pg (26.0-34.0); MCHC 32.3 g/dL (31.0-37.0); MCV 90.2 fL (80.0-100.0); MEAN PLATELET VOLUME 10.3 fL (7.4-10.4); MONOCYTES 11.5 % (2-11); NEUTROPHILS 58.8 % (40-80); PLATELET COUNT 326 10x3/uL (130-400); RBC 3.98 10x6/uL (4.20-6.10); RDW 13.8 % (11.5-14.5); WBC 4.9 10x3/uL (4.8-10.8)
[2019-11-26 07:37] LABS: ANION GAP 12.2 mmol/L (8-16); CARBON DIOXIDE 25.8 mmol/L (21.0-32.0); CREATININE - SERUM 2.2 mg/dL (0.6-1.3)
[2019-11-26 08:00] VITALS: BP 132/81
--- NOTE | 2019-11-26 14:53 | NUR ---
CARE TEAM MEETING: PATIENT AND SON ATTENDED THE MEETING. TENATIVE DISCHARGE DATE IS 11/28/19. PATIENT IS IN NEED OF A WHEELCHAIR. REQUESTING A SCRIPT FOR OUTPATIENT THERAPY. WILL CONTIUE TO FOLLOW WITH PATIENT.
[2019-11-26 21:59] VITALS: BP 131/72
--- NOTE | 2019-11-27 07:33 | NUR ---
AWAKE AND ALERT RESTING IN BED, DENIES ANY NEEDS AT THIS TIME, C/L AND FLUIDS IN REACH.
[2019-11-27 07:38] VITALS: BP 130/78
--- NOTE | 2019-11-27 12:00 | NUR ---
UP IN W/C WITH THERAPY, DENIES ANY NEEDS AT THIS TIME, C/L AND FLUIDS IN REACH.
--- NOTE | 2019-11-27 12:10 | NUR ---
PATIENT DISCHARGING HOME IN AM WITH FAMILY. A SCRIPT FOR OUTPATIENT THERAPY GIVEN. [facility] WILL DELIVER A WHEELCHAIR AND A SLIDE BOARD TO PATIENT. [facility] SIGNED, AND IMM SERVED AND EXPLAINED, ONE GIVEN TO PATIENT AND ONE FILED IN CHART. DR. HOOKER 12/10/19 @ 12:15, DR. HUSSEIN 12/23/19 @ 10:00. DISCHARGE INSTRUCTIONS FAXED TO PCP AND REVIEWED WITH PATIENT AND FAMILY. WILL CONTINUE TO FOLLOW WITH PATIENT UNTIL DISCHARGED.
--- NOTE | 2019-11-27 15:55 | NUR ---
UP IN W/C, DENIES ANY NEEDS AT TH IS TIME, C/L AND FLUIDS IN REACH.
--- NOTE | 2019-11-27 19:20 | NUR ---
RECEIVED PT SITTING UP IN W/C. ALERT AND ORIENTED X4. DENIES ANY PAIN. ASSISTED WITH TRANSFER FROM CHAIR TO BED WITH MIN ASSIST X1. DENIES ANY OTHER NEEDS. NO SIGNS OF ACUTE DISTRESS NOTED. CALL LIGHT AND WATER WITHIN REACH. FALL PRECAUTIONS IN PLACE. CPOC
[2019-11-27 21:48] VITALS: BP 140/78
--- NOTE | 2019-11-27 23:51 | NUR ---
QUIET HOURS. PT LYING IN BED WATCHING TV. DENIES ANY PAIN. EMPTIED URINAL 600ML YELLOW URINE. DENIES ANY NEEDS. NO SIGNS OF ACUTE DISTRESS NOTED. CALL LIGHT WITHIN REACH. FALL PRECAUTIONS IN PLACE. CPOC
--- NOTE | 2019-11-28 01:59 | NUR ---
PT LYING IN BED EYES CLOSED RESTING QUIETLY. RR EVEN AND UNLABORED. CALL LIGHT WITHIN REACH. FALL PRECAUTIONS IN PLACE. CPOC
--- NOTE | 2019-11-28 04:55 | NUR ---
PT LYING IN BED AWAKE. URINAL EMPTIED. 600ML CLEAR YELLOW URINE. DENIES ANY NEEDS OR PAIN. NO SIGNS OF ACUTE DISTRESS NOTED. CALL LIGHT WITHIN REACH. FALL PRECAUTIONS IN PLACE. CPOC
[2019-11-28 08:00] VITALS: BP 151/90
--- NOTE | 2019-11-28 08:05 | NUR ---
SITTING UP IN BED EATING BREAKFAST, DENIES ANY NEEDS AT THIS TIME, C/L AND FLUIDS IN REACH.
[2019-11-28] MEDS ORDERED: PROCARDIA XL60 MG PO (10:45)
--- NOTE | 2019-11-28 12:22 | NUR ---
UP IN W/C, DENIES ANY NEEDS AT THIS TIME, C/L AND FLUIDS IN REACH.
== END 2019-11-28 13:30 | disposition home or self-care (01) | DRG 56 ==
LOC: D.REHAB 19:05
PROVIDERS: ADMIT Emergency Medicine; ATTEND Emergency Medicine
DX: I69.30 Unspecified sequelae of cerebral infarction (principal); J96.90 Respiratory failure, unspecified, unspecified whether with hypoxia or hypercapnia; I50.23 Acute on chronic systolic (congestive) heart failure; J81.1 Chronic pulmonary edema; I42.9 Cardiomyopathy, unspecified; I48.92 Unspecified atrial flutter; I13.0 Hypertensive heart and chronic kidney disease with heart failure and stage 1 through stage 4 chronic kidney disease, or unspecified chronic kidney disease; N18.9 Chronic kidney disease, unspecified; R00.0 Tachycardia, unspecified; I48.91 Unspecified atrial fibrillation; R53.1 Weakness; R47.81 Slurred speech; E11.9 Type 2 diabetes mellitus without complications; E78.5 Hyperlipidemia, unspecified; R07.9 Chest pain, unspecified; N18.3 Chronic kidney disease, stage 3 (moderate)